=== PATIENT | female | born 1945 | race Caucasian/White ===

== ENCOUNTER 2020-11-29 12:30 | Outpatient (RCR) | payer MEDICARE, SELFPAY ==
--- NOTE | 2020-10-26 15:15 | PTOPEVAL ---
PHYSICAL THERAPY EVALUATION AND PLAN OF CARE 10-26-20 Thank you for referring Adelita Arteaga to [facility] for the diagnosis of vestibular rehab/vertigo. She is scheduled to be seen for therapy? 1-2 x/week for 5 weeks. Please review, sign, date and return this plan of care JESENIA. I agree with and certify that the following plan of care is medically necessary. Referring Physician Date Attending Provider: Dr. Pitts *PT Outpatient Evaluation Document 10/26/20 13:55 CHEPE (Rec: 10/26/20 15:15 CHEPE [id number]) Outpatient Past Medical History Past Medical History Source of Past Medical History Patient Neurological History Hx Neurological Disorders No Significant History Cardiovascular History Hx Hypercholesterolemia Yes: meds Hx Hypertension Yes: meds Respiratory History Hx Respiratory Disorders No Significant History Gastrointestinal History Hx Gastrointestinal Disorders No Significant History Genitourinary History Hx Genitourinary Disorders No Significant History Musculoskeletal History Hx Arthritis Yes: B knees, Hx Orthopedic Surgery Yes: L knee arthroscopy Endocrine History Hx Other Endocrine Disorders Yes: parathyroid removed HEENT History Hx Other HEENT Disorders Yes: glasses-bifocals, no issues with vision Reproductive History Hx Hysterectomy Yes Evaluation Information Problem Diagnosis vertigo Onset Aug 2020 Subjective Information fell due to dizziness when Query Text:As Reported By Patient/ getting up to bathroom at Family night/dark Previous Treatments Previous Treatments For This Problem no previous treatment Prior Level of Function Activity Level (Last 3 Months) Occupation retired Hand Dominance Right Activity of Daily Living Ability Independent Indoor/Home Mobility Independent Community Mobility Independent Stairs Ability Independent Functional Cognition (Planning, Shopping Independent , Taking Medications) Cooking Yes Cleaning Yes Laundry Yes Shopping Yes Driving Yes Medications Home Meds (Include: OTC, RX, Vitamins, simvastin, aspirin, brimodine, Herbals, Dose, Route,and Frequency) omepraxole, meclizine, Query Text:Home Med Entries Will No acetaminphen, Vit D; Longer Recall From Past Visits. Home Meds Must Be Re-entered With Each Visit. Home Setting Mobility Assistive Devices (Used Last 3 Cane Months) Comments Additional Prior Level of Function can do all home tasks, but Comments have to hold onto cane or wall
--- NOTE | 2020-11-29 13:11 | PTOPEVAL ---
PHYSICAL THERAPY DISCHARGE 11-29-20 Refer to the clinical summary below for her status at today's discharge. The PT goals were achieved, therefore, she will be discharged from PT at this time. Thank you for referring Adelita Arteaga to [facility] for the diagnosis of vestibular rehab/ BPPV.? Please review, sign, date and return this Discharge JESENIA. I agree with and certify that the following plan of care is medically necessary. Referring Physician Date Referring Provider: Ede Pitts MD Document 11/29/20 12:30 CHEPE (Rec: 11/29/20 13:11 CHEPE [id number]) Assessment Status Discharge Subjective Information Mrs. Arteaga reports: last time Query Text:As Reported By Patient/ had dizziness was about 1 week Family ago; is doing the maneuver without any problems; leaning forward to pick something up off floor, get off balance; have not had any falls, is using cane when going out of home and sometimes in the house when unsteady; Pain Assessment Timing of Pain Assessment Timing of Pain Assessment Assessment Self Report Self Report Pain Level 0 Pain Score Pain Score 0: Self Report Vestibular Evaluation Vestibular Testing Vestibular Testing Comments -pick up attendant item off floor, no dizziness, but unsteady - standing 360' turn to R/L- no dizziness but unsteady - walk 50' with head turn R/L and up/down without dizziness, slow pace of walking and unsteady; - HEP: review of Moffett Daroff maneuver, pt performed past few days without any s/s of dizziness; discuss continue PRN if dizziness occurs or do 2-3x/week to clear vestibular system; - discussed general fitness exercises for LE's to improve balance and walking skills; she reports unsteady with walking and fear of falling; discussed when she sees her general physician, to discuss and possibly return to therapy for LE strength and balance retraining. - Dizziness Handicap index score of 20/100 Rehab Teaching
== END 2021-01-10 12:44 | disposition home or self-care (01) ==
LOC: ANHPT 12:30
DX: H81.4 Vertigo of central origin (principal)
CPT/HCPCS: 97110; 97161

== ENCOUNTER → 2023-04-22 07:18 | Outpatient (CLI) | payer MEDICARE, SELFPAY ==
--- NOTE | ~2023-04-22 | MM_ITS ---
EXAMINATION: MM screening joe BI w fannie HISTORY: Screening TECHNIQUE: Craniocaudal and mediolateral oblique 3-D tomosynthesis images were obtained and synthetic 2-D images were generated. CAD analysis was submitted and interpreted. COMPARISON: No prior mammogram is available for comparison at this institution. BREAST PARENCHYMAL COMPOSITION: Breast composed of scattered areas of fibroglandular density FINDINGS: There are focal fat-containing lesions in the mid outer aspect of the right breast, most li tim benign fat necrosis. There is no evidence of suspicious mass, calcification, or architectural di stortion to suggest malignancy in either breast. IMPRESSION: 1. No mammographic evidence of malignancy. 2. Recommend routine screening mammography in one year. BI-RADS Category 2: Benign finding(s). Reviewed, dictated and finalized at location A.
== END ==
PROVIDERS: PCP Internal Medicine; Visit Provider Internal Medicine
DX: Z12.31 Encounter for screening mammogram for malignant neoplasm of breast (principal)
CPT/HCPCS: 77063; 77067

== ENCOUNTER 2024-11-11 15:01 | Emergency (ER) | payer MEDICARE, SELFPAY ==
--- NOTE | ~2024-11-11 | CT_ITS ---
CT facial & cervical spine wo Ordering provider: Bernie Spence MD History: . fall facial inj . Comparison: None. Technique: Thin slice axial CT of the facial bones was performed without contrast. Coronal and sagit tiana reformatted images were also obtained. . Automated exposure control and iterative reconstruction technique were employed. The dose-length product was 289.28 mGy-cm. FINDINGS: PARANASAL SINUSES: Right sphenoid sinus disease. Otherwise, Well aerated. BONES: No facial fracture including no nasal bone fracture. ORBITS AND SUPERFICIAL SOFT TISSUES: The optic globes and orbits are normal. Minimal fat stranding se en in the left cheek area and anterior to the left orbit which may indicate posttraumatic changes abhinav elvis inflammatory changes. Clinical correlation and follow-up advised. Otherwise, The superficial soft tissues are normal. VISUALIZED MASTOIDS: Well aerated. LIMITED VISUALIZED BRAIN PARENCHYMA: Normal. IMPRESSION: No facial fracture. Right sphenoid sinus disease. CT facial & cervical spine wo Ordering provider: Bernie Spence MD History: . fall facial inj . Comparison: None. Technique: CT of the cervical spine was performed without contrast. Sagittal and coronal reformatted images were also obtained and reviewed. Automated exposure control and iterative reconstruction ridge hnique were employed. The dose-length product was 289.28 mGy-cm. FINDINGS: VERTEBRAE: No subluxation or acute fracture. The occipital condyles are intact. Degenerative changes of the spine. DISC SPACES: Narrowing of the disc C2-C3, C3-C4, C4-C5 and C5-C6. Multilevel facet joint disease. Mul tilevel uncovertebral joint osteoarthritic changes. Narrowing of the left intervertebral foramen at t he level of C3-C4. Bilaterally at the level of C4-C5 and C5-C6. Narrowing of the right foramen at the level of C6-C7. PARASPINOUS SOFT TISSUES: Postoperative changes in the thyroid gland area on the right side. 7 mm Hyp erdense area seen just in the right lobe of the thyroid area. Ultrasound evaluation advised. Bilatera l carotid calcifications. IMPRESSION: No acute osseous abnormality cervical spine. Multilevel degenerative disc disease. Reviewed, dictated and finalized at location A. IMPRESSION: No facial fracture. Right sphenoid sinus disease. CT facial & cervical spine wo Ordering provider: Bernie Spence MD History: . fall facial inj . Comparison: None. Technique: CT of the cervical spine was performed without contrast. Sagittal a nd coronal reformatted images were also obtained and reviewed. Automated expos ure control and iterative reconstruction technique were employed. The dose-gabriel th product was 289.28 mGy-cm. FINDINGS: VERTEBRAE: No subluxation or acute fracture. The occipital condyles are intact. Degenerative changes of the spine. DISC SPACES: Narrowing of the disc C2-C3, C3-C4, C4-C5 and C5-C6. Multilevel fa cet joint disease. Multilevel uncovertebral joint osteoarthritic changes. Narro wing of the left intervertebral foramen at the level of C3-C4. Bilaterally at t he level of C4-C5 and C5-C6. Narrowing of the right foramen at the level of C6- C7. PARASPINOUS SOFT TISSUES: Postoperative changes in the thyroid gland area on th e right side. 7 mm Hyperdense area seen just in the right lobe of the thyroid a mariela. Ultrasound evaluation advised. Bilateral carotid calcifications.
--- NOTE | ~2024-11-11 | CT_ITS ---
CT brain wo con Ordering provider: Bernie Spence MD History: 79 years Female with . fall, facial inj . Comparison: None. Technique: CT of the head without contrast. Radiation reduction technique utilized.The dose-length pr oduct was 605.33 mGy-cm. FINDINGS: BRAIN PARENCHYMA AND CSF SPACES: Mild leukoaraiosis and diffuse cortical atrophy. Mild atheromatous d isease. Ventricular dilatation is more prominent compared to the brain atrophy. Normal pressure hydro cephalus should be considered. Old lacunar infarct in the right basal ganglia. No midline shift, mass effect or hemorrhage. The brain parenchyma and CSF spaces are otherwise normal. VISUALIZED PARANASAL SINUSES: Right sphenoid sinus disease. Otherwise, Well aerated. MASTOIDS: Well aerated. BONES: The bones appear intact. SOFT TISSUES: Visualized nasopharynx is normal. Superficial soft tissues are normal. IMPRESSION: No acute intracranial findings. Ventricular dilatation slightly prominent compared to the brain atrophy which may indicate normal pre ssure hydrocephalus. Clinical correlation advised. Reviewed, dictated and finalized at location A. IMPRESSION: No acute intracranial findings. Ventricular dilatation slightly prominent compared to the brain atrophy which m ay indicate normal pressure hydrocephalus. Clinical correlation advised.
[2024-11-11 15:03] VITALS: BP 167/101; PULSE 95; RESP 16; TEMP 37; O2SAT 100
[2024-11-11 15:20] VITALS: BP 173/83; PULSE 79; RESP 16; O2SAT 100
--- OUTSIDE RECORDS SUMMARY | 2024-11-11 15:27 | XMS_ITS | Clinical Summary ---
Author Organization [facility] Address [address] [place] [address] Care Team Providers Care Emergency Veterinary Technician Name Role Phone Colt Rasheed MD Primary Care Provider [phone] Allergies Active Allergy Reactions Criticality Noted Date Comments Tetracycline Unknown 07/09/2022 Medications aspirin EC (ECOTRIN) 81 MG tablet Take 1 tablet (81 mg total) by mouth daily. Active omeprazole (PRILOSEC) 20 MG capsule Take 1 capsule (20 mg total) by mouth daily. Active acetaminophen (TYLENOL) 325 MG tablet Take 2 tablets (650 mg total) by mouth 2 (two) times a day. Active vitamin D3, cholecalciferol, 125 mcg capsule Take 1 capsule (125 mcg total) by mouth daily. Active Multiple Vitamins-Minerals (CENTRUM SILVER) Tab Take 1 tablet by mouth daily. Active brimonidine (ALPHAGAN) 0.2 % ophthalmic solution INSTILL 1 DROP INTO BOTH EYES EVERY 12 HOURS 12/29/19 23 Active timolol (TIMOPTIC) 0.5 % ophthalmic solution INSTILL ONE DROP INTO EACH EYE TWICE DAILY. SCHEDULE APPOINTMENT FOR REFILL 12/29/19 23 Active celecoxib (CELEBREX) 200 MG capsuleIndications :Spinal stenosis of lumbar region take 1 capsule by mouth every day 90 capsule 1 05/04/20 24 Active simvastatin (ZOCOR) 10 MG tabletIndications: Mixed hyperlipidemia take 1 tablet by mouth everyday at bedtime 90 tablet 1 05/04/20 24 Active potassium chloride CR (K-TAB) 10 MEQ Tab CR tabletIndications: Primary hypertension TAKE 3 TABLETS (30 MEQ TOTAL) BY MOUTH 2 (TWO) TIMES DAILY. 540 tablet 1 05/04/20 24 Active amLODIPine (NORVASC) 10 MG tabletIndications: Primary hypertension take 1 tablet by mouth every day 90 tablet 1 05/31/20 24 Active indapamide (LOZOL) 1.25 MG tabletIndications: Primary hypertension take 1 tablet by mouth every day in the morning 90 tablet 1 05/31/20 24 Active WALKER MISC, DME,Indications:Sp inal stenosis of lumbar region with neurogenic claudication,Unste lilliana gait,Dizziness 1 Device by Does not apply route daily. 1 Device 06/22/20 Active Active Problems Problem Noted Date Diagnosed Date Spinal stenosis of lumbar region 09/03/2023 Primary hypertension 07/09/2022 Mixed hyperlipidemia 07/09/2022 Gastroesophageal reflux disease without esophagi tis 07/09/2022 Vertigo of central origin, unspecified lateralit y 10/16/2020 Vestibular vertigo 02/08/2016 Asymmetrical sensorineural hearing loss 09/12/19 16 Benign paroxysmal positional vertigo 09/12/2015 Epidemic vertigo 09/12/2015 Dizziness 09/07/2015 Hyperparathyroidism ([facility]) 07/17/2010 Encounters Date Type Department Care Team Description 11/09/2024 Patient Outreach [facility] Family & Internal Medicine [address] [address] Colt Rasheed MD Pre-visit Gap Closure 10/25/2024 Telephone [facility] Family & Internal Medicine [address] [address] Colt Rasheed MD Diarrhea 09/13/2024 Scan HEALTH INFO SRVCS Scanned, Doc [facility] 08/31/2024 Patient Outreach [facility] Family & Internal Medicine [address] [address] Colt Rasheed MD Pre-visit Gap Closure from Last 3 Months Immunizations Name Administration Dates Next Due Influenza (Generic) 05/18/2020,05/18/2019 Influenza Adult (Generic) 05/18/2018,05/19/2017, 05/16/2016,06/01/2015 Pneumococcal (Pneumovax 23) 05/18/2019 Pneumococcal (Prevnar 13) 04/15/2018 Pneumococcal (Prevnar 20) 08/13/2023 Family History Medical History Relation Comments Kidney failure Brother Relation Status Comments Brother Social History Tobacco Use Types Packs/Day Years Used Date Smoking Tobacco: Never Smokeless Tobacco: Never Tobacco Cessation:Counseling Given: Not Answered Alcohol Use Standard Drinks/Week Comments Yes 0 (1 standard drink = 0.6 oz pure alcohol) rarely; couple glasses of wine yearly PHQ-2 Answer Date Recorded Patient Health Questionnaire-2 Score 0 08/13/2023 Comments No Sex and Gender Information Value Date Recorded Sex Assigned at Not on file Legal Sex Female 9:50 AM CDT Gender Identity Not on file Sexual Orientation Not on file Last Filed Vital Signs Vital Sign Reading Time Taken Comments Blood Pressure 120/70 02/16/2024 11:49 AM CDT Pulse 65 02/16/2024 11:49 AM CDT Temperature 36.7 C (98.1 F) 02/16/2024 11:49 AM CDT Respiratory Rate 16 02/16/2024 11:49 AM CDT Oxygen Saturation 97% 02/16/2024 11:49 AM CDT Inhaled Oxygen Concentration - - Weight 71.2 kg (157 lb) 02/16/2024 11:49 AM CDT Height 162.6 cm (5' 4 ) 02/16/2024 11:49 AM CDT Body Mass Index 26.95 02/16/2024 11:49 AM CDT Plan of Treatment Upcoming Encounters Date Type Department Care Team (Late st Contact Info) Description 11/17/2024 9:40 AM CDT Office Visit [facility] Family & Internal Medicine - [address] [address] Colt Rasheed MD [address] [place] [id number] Health Maintenance Due Date Last Done Comments Hepatitis C 1963 DTaP, Tdap and Td Vaccines (1 - Tdap) 02/26/1964 Zoster Vaccines (1 of 2) 1995 Annual Medicare Wellness Visit 2010 RSV Immunization or 60+ Years (1 - 1-dose 75+ series) 02/26/2020 COVID-19 Vaccine ( - season) 2024 05/16/2022, 12/25/2021, 05/16/2021, Additional history exists PHQ-2 (Physician Petty) 08/04/2024 08/13/2023 Dexa Scan (General) Completed 04/26/2020 Pneumococcal Vaccine: 65+ Years Completed 08/13/2023, 05/18/2019, 04/15/2018 Meningococcal B Vaccine Aged Out No l onger eligible based on patient's age to complete this topic Meningococcal Vaccine Aged Out No charity jeronimo eligible based on patient's age to complete this topic RSV Immunizations Under 20 Months Aged Out No longer eligible based on patient's age to complete this topic Procedures Procedure Name Priority Date/Time Associated Diagnosis Comments BONE DENSITY GENERIC (SCAN ORDER) 04/26/2020 from Last 3 Months or Most Recently Relevant to Health Maintenance Results * BONE DENSITY GENERIC (04/26/2020) Anatomical Region Laterality Modality Other 04/26/2020 us [facility] Scanned SCANNING Final Resu lt from Last 3 Months or Most Recently Relevant to Health Maintenance Insurance MEDICARE [facility] Care Teams Emergency Veterinary Technician Relationship Specialty Start Date End Date Colt Rasheed MD [address] [place] [id number] PCP - General INTERNAL MEDICINE 07/09/22
--- OUTSIDE RECORDS SUMMARY | 2024-11-11 15:27 | XMS_ITS | Clinical Summary ---
Author Organization [facility] Address [facility] [place] [address] Care Team Providers Care Regional Program Manager Name Role Phone Sam Renteria MD Primary Care Provider [phone] Allergies Active Allergy Reactions Criticality Noted Date Comments Tetracycline Medications amLODIPine (NORVASC) 10 mg tablet Take 10 mg by mouth daily 10/02/2020 Active celecoxib (CeleBREX) 200 mg capsule Take by mouth daily 08/15/2020 Active indapamide (LOZOL) 1.25 mg tablet Take 1.25 mg by mouth daily 07/28/2020 Active potassium chloride ER 10 mEq CR tablet Take 30 mEq by mouth 2 (two) times a day 07/28/2020 Active simvastatin (ZOCOR) 10 mg tablet TAKE ONE TAB BY MOUTH EVERY NIGHT 08/26/2020 Active Active Problems Problem Noted Date Diagnosed Date Vertigo of central origin, unspecified lateralit y 10/16/2020 Vestibular vertigo 02/08/2016 Epidemic vertigo 09/12/2015 Benign paroxysmal positional vertigo 09/12/2015 Asymmetrical sensorineural hearing loss 09/12/19 16 Dizziness 09/07/2015 Hyperparathyroidism 07/17/2010 Surgical History Surgery Date Site/Laterality Comments IR FINE NEEDLE ASPIRATION W IMAGE GUIDANCE 08/21/2012 N/A Social History Tobacco Use Types Packs/Day Years Used Date Smoking Tobacco: Never Assessed Comments Unknown Sex and Gender Information Value Date Recorded Sex Assigned at Not on file Legal Sex Female 3:01 AM SEXUAL ASSAULT COUNSELOR Gender Identity Not on file Sexual Orientation Not on file Obstetrics History Last Filed Vital Signs Vital Sign Reading Time Taken Comments Blood Pressure 148/90 09/12/2015 11:24 AM SEXUAL ASSAULT COUNSELOR Pulse 84 11/16/2013 10:04 AM CDT Temperature - - Respiratory Rate - - Oxygen Saturation 100% 11/12/2012 8:00 AM CDT Inhaled Oxygen Concentration - - Weight 79.4 kg (175 lb) 09/12/2015 11:24 AM SEXUAL ASSAULT COUNSELOR Height 167.6 cm (5' 6 ) 09/12/2015 11:24 AM SEXUAL ASSAULT COUNSELOR Body Mass Index 28.25 09/12/2015 11:24 AM SEXUAL ASSAULT COUNSELOR Plan of Treatment Not on file Insurance Member Subscriber Plan / Payer ( fective 2020-Present) Name:Adelita Arteaga Relation to Subscriber:Self Name:Adelita Arteaga Payer ID:[id number] Group ID:[id number] Type:[employer] Address: [address] [address] MEDICARE MEDICARE COMMERCIAL GENERIC Care Teams Regional Program Manager Relationship Specialty Start Date End Date Sam Renteria MD [address] [facility] [address] [place] [address] PCP - General Cardiovascular Disease 08/14/20
--- OUTSIDE RECORDS SUMMARY | 2024-11-11 15:27 | XMS_ITS | Referral Summary ---
Author Organization [facility] Address [address] [place] [address] Care Team Providers Care Engineering Secretary Name Role Phone Sam Renteria MD Primary Care Provider [phone] Allergies Active Allergy Reactions Criticality Noted Date [...] loss 09/12/19 16 Dizziness 09/07/2015 Hyperparathyroidism 07/17/2010 Social History Tobacco Use Types Packs/Day Years Used Date Smoking Tobacco: Never Assessed Comments Unknown Sex and Gender Information Value Date Recorded Sex Assigned at Not on file Legal Sex Female 3:01 AM SOD CUTTER Gender Identity Not on file Sexual Orientation Not on file Last Filed Vital Signs Vital Sign Reading Time Taken Comments Blood Pressure 148/90 09/12/2015 11:24 AM SOD CUTTER Pulse 84 11/16/2013 10:04 AM CDT Temperature - - Respiratory Rate - - Oxygen Saturation 100% 11/12/2012 8:00 AM CDT Inhaled Oxygen Concentration - - Weight 79.4 kg (175 lb) 09/12/2015 11:24 AM SOD CUTTER Height 167.6 cm (5' 6 ) 09/12/2015 11:24 AM SOD CUTTER Body Mass Index 28.25 09/12/2015 11:24 AM SOD CUTTER Plan of Treatment Not on file Insurance COMMERCIAL GENERIC MEDICARE MEDICARE COMMERCIAL GENERIC * Guarantor: Adelita Arteaga Account Type Relation to Patient Date of Phone Billing Address Personal/Family Self 1945 [address] [place] [address] Care Teams Engineering Secretary Relationship Specialty Start Date End Date Sam Renteria MD [address] [place] [address] PCP - General Cardiovascular Disease 08/14/20
--- OUTSIDE RECORDS SUMMARY | 2024-11-11 15:27 | XMS_ITS ---
Author Name Kristopher Sanabria Address [address] [address] Phone [phone] Organization [facility] Address [address] [place] [address] Phone [phone] Care Team Providers Care Qa Test Analyst Name Role Phone Kristopher Sanabria Unavailable [phone] Functional Status No Results Mental Status No Results Allergies and Intolerances No Known Allergies Problems Active Concerns * Vestibular neuronitis, bilateral* Code: * Start Date: FriMar 04 00:00:00 EDT 2015 * End Date: * Text: * Dizziness and giddiness* Code: * Start Date: FriMar 04 00:00:00 EDT 2015 * End Date: * Text: Reason for Referral Past Medical History
--- OUTSIDE RECORDS SUMMARY | 2024-11-11 15:27 | XMS_ITS | Continuity of Care Document ---
Author Organization [facility] Address [address] [place] [address] Phone Care Team Providers Care Brand Engineer Name Role Phone [facility] Unavailable [...] Diagnoses Date Provider Providers Copied on Encounter [facility], [address], [place], [place], [address], [place] tel:[phone] SEC [facility] Yimi No Information 0 [facility] n. [address] [facility], [address], [place], [place], [address] , [place]. tel:[phone] Referring Provider: Christiano Orr MD C, [address] [facility] [address], [place], [address]. tel:[phone] g Provider: Catarina Gusman, [address] [facility], [place], [address]. tel:[phone] [facility], [address], [place], [place], [address], [place] tel:[phone] SEC [facility] No Information Oct- 4-200 9 [facility]. [address] [facility], [address], [place], [place], [address] , [place]. tel:[phone] Referring Provider: Christiano Bernal, [address], [place], [address]. tel:[phone] g Provider: Catarina Gusman, [address] [facility], [place], [address]. tel:[phone] [facility], [address], [place], [place], [address], [place] tel:[phone] [facility] No Information Apr- 5-200 9 [facility]. [address] [facility], [address], [place], [address] , [place]. tel:[phone] Referring Provider: Christiano Bernal, [address], [place], [address]. tel:[phone] g Provider: Cat Cruz, [address] [place], [address]. tel:[phone] [facility], [address], [place], [place], [address], [place] tel:[phone] [facility] No Information Sep- 5-200 8 [facility]. [address] [facility], [address], [place], [address] , [place]. tel:[phone] Referring Provider: Christiano Bernal, [address], [place], [address]. tel:[phone] m Provider: Tommy Bruce, [address] [facility], [place], [address]. tel:[phone] [facility], [address], [place], [place], [address], [place] tel:[phone] [facility] No Information Jan- 5-200 7 [facility] [employer] n. [address] [facility], [address], [place], [place], [address] , [place]. tel:[phone] Referring Provider: Christiano Orr MD C, [address] [facility] [address], [place], [address]. tel:[phone] f Provider: Cat Cruz, [address] [place], [address]. tel:[phone] Family History Family Member Type Diagnosis Age At Onset No Information Payers Payer name Insurance type Covered democrat ID Puja christianson(s) [employer] Plan CI [id number] Social History Type Description Quantity Date Captured [...]
--- NOTE | 2024-11-11 15:44 | ED_ITS ---
HPI - Fall General Chief Complaint: Fall Stated Complaint: Fall-Injury to left side of face, No LOC Time Seen by Provider: 11/11/24 15:19 Source: patient Mode of arrival: ambulatory Limitations: no limitations History of Present Illness HPI Narrative: Patient presents after she tripped on a curb and fell while picking up her taxes. She struck her face, particularly the left side. No loss of consciousness. No blurred/double vision. No broken/loose dentition. On 81mg ASA but no other anticoagulation. No head or neck pain. Related Data Allergies Allergy/AdvReac Type Severity Reaction Status Date / Time Tetracyclines Allergy Intermediate Hives Verified 11/11/24 15:03 Exam Narrative: GENERAL: Well-appearing, well-nourished, and in no acute distress. HEAD: Left periorbital ecchymosis and swelling, particularly around the lateral (including superior and inferior) aspect. Abrasion to left check. EYES: Non injected, non icteric. PERRL. EOMI without entrapment. No nystagmus. No APD. ENT: Nares clear, no rhinorrhea or epistaxis. No septal hematoma. No br oken/loose dentition. Left upper lip swelling. Subcentimeter laceration/abrasion along inner mucosa of upper left lip. NECK: Supple. Not held in fixed flexion/extension. CHEST: Speaking in full sentences. No respiratory distress. HEART: Regular rate and rhythm. . ABDOMEN: Soft, nondistended. EXTREMITIES: Normal range of motion. No lower extremity edema. SKIN: Warm, dry, no rash. NEURO: No focal deficits. Alert and oriented x3. sensation intact throughout face. Facial movements symmetric bilaterally - muscles engage. PSYCH: Normal mood and affect. Course Vital Signs Vital signs: Vital Signs Temperature 98.6 F 11/11/24 15:03 Pulse Rate 95 11/11/24 15:03 Respiratory Rate 16 11/11/24 15:03 Blood Pressure 167/101 H 11/11/24 15:03 Pulse Oximetry 100 11/11/24 15:03 Oxygen Delivery Room Air 11/11/24 15:03 Temperature 98.6 F 11/11/24 15:03 Pulse Rate 95 11/11/24 16:21 Respiratory Rate 20 11/11/24 16:21 Blood Pressure 149/102 H 11/11/24 16:21 Pulse Oximetry 95 11/11/24 16:21 Oxygen Delivery Room Air 11/11/24 15:03 MDM - Fall MDM Narrative Medical decision making narrative: Patient presents after a fall injury in which she tripped and struck her face. In the emergency department she is afebrile vital signs notable for hypertension. Patient given analgesia and ice pack. No acute process on imaging but incidental finding noted in DC instructions for outpatient follow up. Discussed with patient that swelling likely to get worse before it gets better and if it swells it may cause eyelid to swell and impair her vision so to be even more cautious. Advised ice and prescribed OTC analgesics. Discharged in stable condition. Differential Diagnosis Differential diagnosis: Likely compression fracture and other (intracranial bleeding, vertebral fracture/subluxation; facial bone fractures) Imaging Data Radiologist's impression: No acute intracranial findings. Ventricular dilatation slightly prominent compared to the brain atrophy which may indicate normal pressure hydrocephalus. Clinical correlation advised. IMPRESSION: No acute osseous abnormality cervical spine. Multilevel degenerative disc disease. Discharge Plan Discharge Clinical Impression: DDD (degenerative disc disease), cervical, Fall (on)(from) sidewalk curb, initial encounter, Traumatic periorbital ecchymosis of left eye, Abrasion of face, Abrasion of intraoral surface of lip Patient Disposition: Home Condition: Stable Instructions: Fall Prevention for Older Adults (ED), Abrasion (ED), Degenerative Disc Disease (ED), Eyelid Swelling (ED) Additional Instructions: No broken bones in skull/neck/face. No bleeding in the brain. Your CT scan did show Ventricular dilatation slightly prominent compared to the brain atrophy which may indicate normal pressure hydrocephalus. Clinical correlation advised. Your primary care physician can follow-up on this. As we discussed, the swelling room URI may get worse before it gets better. You can continue to apply ice pack 15-20 minutes at a time 4 times a day. Do not apply ice directly to the skin. Acetaminophen/Tylenol (maximum 4000 mg per day) is safe to take with NSAIDs (ibuprofen/Motrin) for pain relief. Return to the emergency department with any new or worsening symptoms. Patient Language: Northern Irish Prescriptions: New ibuprofen 600 mg tablet 600 mg PO TID PRN (Reason: pain) Qty: 30 0RF acetaminophen 500 mg capsule 1,000 mg PO Q6H PRN (Reason: pain) Qty: 30 0RF Follow-up/Referrals: Wili,Colt Admas MD [Primary Care Provider] - Time of Disposition: 17:08
[2024-11-11 16:21] VITALS: BP 149/102; PULSE 95; RESP 20; O2SAT 95
--- OUTSIDE RECORDS SUMMARY | 2024-11-11 16:21 | XMS_ITS | Clinical Summary ---
Author Organization [facility] Address [address] [place] [address] Care Team Providers Care Property Claim Rep Name Role Phone Colt Rasheed MD Primary Care Provider [phone] Allergies Active Allergy Reactions Criticality Noted Date [...] 09/12/2015 Epidemic vertigo 09/12/2015 Dizziness 09/07/2015 Hyperparathyroidism ([facility]) 07/17/2010 Encounters Date Type Department Care Team Description 11/09/2024 Patient Outreach [facility] [address] [address] Colt Rasheed MD Pre-visit Gap Closure 10/25/2024 Telephone [facility] [address] [address] Colt Rasheed MD Diarrhea 09/13/2024 Scan HEALTH INFO SRVCS Scanned, [facility] 08/31/2024 Patient Outreach [facility] [address] [address] Colt Rasheed MD Pre-visit Gap Closure from [...] Description 11/17/2024 9:40 AM CDT Office Visit [facility] Family & Internal Medicine - [address] [address] Colt Rasheed MD [address] [place] [id number] Health Maintenance Due Date Last Done Comments Hepatitis C 1963 DTaP, Tdap and Td Vaccines (1 - Tdap) 02/26/1964 Zoster Vaccines (1 of 2) 1995 Annual Medicare Wellness Visit 2010 RSV Immunization or 60+ Years (1 - 1-dose 75+ series) 02/26/2020 COVID-19 Vaccine ( - season) 2024 05/16/2022, 12/25/2021, 05/16/2021, Additional history exists PHQ-2 (Physician [place]) 08/04/2024 08/13/2023 Dexa Scan (General) Completed 04/26/2020 [...] Recently Relevant to Health Maintenance Insurance MEDICARE [facility] Care Teams Property Claim Rep Relationship Specialty Start Date End Date Colt Rasheed MD [address] [place] [id number] PCP - General INTERNAL MEDICINE 07/09/22
--- OUTSIDE RECORDS SUMMARY | 2024-11-11 16:21 | XMS_ITS ---
Author Name Kristopher Sanabria Address [address] [address] Phone [phone] Organization [facility] Address [address] [place] [address] Phone [phone] Care Team Providers Care Daily Sales Audit Clerk Name Role Phone Kristopher Sanabria Unavailable Functional Status No Results Mental Status No [...]
--- OUTSIDE RECORDS SUMMARY | 2024-11-11 16:21 | XMS_ITS | Referral Summary ---
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 Gender Identity Not on file Sexual Orientation Not on file Last Filed Vital Signs Vital Sign Reading Time Taken Comments Blood Pressure 148/90 09/12/2015 11:24 AM HOSE SPRAYER Pulse 84 11/16/2013 10:04 AM CDT Temperature - - Respiratory Rate - - Oxygen Saturation 100% 11/12/2012 8:00 AM CDT Inhaled Oxygen Concentration - - Weight 79.4 kg (175 lb) 09/12/2015 11:24 AM HOSE SPRAYER Height 167.6 cm (5' 6 ) 09/12/2015 11:24 AM HOSE SPRAYER Body Mass Index 28.25 09/12/2015 11:24 AM HOSE SPRAYER Plan of Treatment Not on file Insurance COMMERCIAL GENERIC [employer] Address: [place] [address] MEDICARE MEDICARE COMMERCIAL GENERIC Care Teams Finish Sander Relationship Specialty Start Date End Date Sam Renteria MD [address] [place] [address] PCP - General Cardiovascular Disease 08/14/20
--- OUTSIDE RECORDS SUMMARY | 2024-11-11 16:21 | XMS_ITS ---
Author Name Kristopher Sanabria Address [address] [address] Phone [phone] [facility] Address [address] [place] [address] Phone [phone] Care Team Providers Care Tight Cooper Name Role Phone Kristopher Sanabria Unavailable Functional Status Mental Status Allergies and Intolerances Problems Reason for Referral Past Medical History
--- OUTSIDE RECORDS SUMMARY | 2024-11-11 16:21 | XMS_ITS | Clinical Summary ---
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 Gender Identity Not on file Sexual Orientation Not on file Obstetrics History Last Filed Vital Signs Vital Sign Reading Time Taken Comments Blood Pressure 148/90 09/12/2015 11:24 AM GEOPHYSICAL MANAGER Pulse 84 11/16/2013 10:04 AM CDT Temperature - - Respiratory Rate - - Oxygen Saturation 100% 11/12/2012 8:00 AM CDT Inhaled Oxygen Concentration - - Weight 79.4 kg (175 lb) 09/12/2015 11:24 AM GEOPHYSICAL MANAGER Height 167.6 cm (5' 6 ) 09/12/2015 11:24 AM GEOPHYSICAL MANAGER Body Mass Index 28.25 09/12/2015 11:24 AM GEOPHYSICAL MANAGER Plan of Treatment Not on file Insurance Member Subscriber Plan / Payer ( fective 2020-Present) Name:Adelita Arteaga Relation to Subscriber:Self Name:Adelita Arteaga Payer ID:[id number] Group ID:[id number] Type:MedHOK Address: [address] [address] MEDICARE MEDICARE COMMERCIAL GENERIC Care Teams Supplier Relationship Director Relationship Specialty Start Date End Date Sam Renteria MD [address] [facility] [address] [place] [address] PCP - General Cardiovascular Disease 08/14/20
--- OUTSIDE RECORDS SUMMARY | 2024-11-11 16:21 | XMS_ITS | Continuity of Care Document ---
Author Organization [facility] Address [address] [place] [address] Phone Care Team Providers Care Deputy Editor In Chief Name Role Phone [facility] Unavailable [...] Diagnoses Date Provider Providers Copied on Encounter [facility], [address], [place], [place], [address], [place] tel:[phone] SEC [facility] Y[place] No Information 0 [facility]. [address] [facility], [address], [place], [place], [address] , [place]. tel:[phone] Referring Provider: Christiano Orr MD C, [address] [facility] [address], [place], [address]. tel:[phone] g Provider: Catarina Gusman, [address] [facility], [place], [address]. tel:[phone] [facility], [address], [place], [place], [address], [place] tel:[phone] SEC [facility] No Information Oct- 4-200 9 [facility]. [address] [facility], [address], [place], [place], [address] , [place]. tel:[phone] Referring Provider: Christiano Bernal, [address], [place], [address]. tel:[phone] g Provider: Catarina Gusman, [address] [facility], [place], [address]. tel:[phone] [facility], [address], [place], [place], [address], [place] tel:[phone] [facility] No Information Apr- 5-200 9 [facility] [facility], [address], [place], [address] , [place]. tel:[phone] Referring Provider: Christiano Bernal, [address], [place], [address]. tel:[phone] g Provider: Cat Cruz, [address] [place], [address]. tel:[phone] [facility], [address], [place], [place], [address], [place] tel:[phone] [facility] No Information Sep- 5-200 8 [facility] [address] [facility], [address], [place], [address] , [place]. tel:[phone] Referring Provider: Christiano Bernal, [address], [place], [address]. tel:[phone] m Provider: Tommy Bruce, [address] [facility], [place], [address]. tel:[phone] [facility], [address], [place], [place], [address], [place] tel:[phone] [facility] No Information Jan- 5-200 7 [facility] [employer] n. [address] [facility], [address], [place], [place], [address] , [place]. tel:[phone] Referring Provider: Christiano Orr MD C, [address] [facility] [address], [place], [address]. tel:[phone] y Provider: Cat Cruz, [address] [place], [address]. tel:[phone] Family History Family Member Type Diagnosis Age At Onset No Information Payers Payer name Insurance type Covered libertarian ID Puja christianson(s) [employer] Plan CI [id number] Social History Type Description Quantity Date Captured [...]
[2024-11-11] MEDS: HYDROcodone/acetaminophen (*CRX) 5-325 MG TABLET 1 TAB PO (16:22)
== END 2024-11-11 17:29 | disposition home or self-care (01) ==
PROVIDERS: Emergency Provider Student in an Organized Health Care Education/Training Program; PCP Internal Medicine
DX: S00.12XA Contusion of left eyelid and periocular area, initial encounter (principal); S00.512A Abrasion of oral cavity, initial encounter; S00.81XA Abrasion of other part of head, initial encounter; M50.31 Other cervical disc degeneration, high cervical region; Z79.82 Long term (current) use of aspirin; W10.1XXA Fall (on)(from) sidewalk curb, initial encounter
CPT/HCPCS: 70450; 70486; 72125; 99284; A9270

== ENCOUNTER 2024-11-25 09:24 | Outpatient (CLI) | payer MEDICARE, SELFPAY ==
--- NOTE | ~2024-11-25 | MR_ITS ---
MRI of the brain Clinical History: Unsteady gait Technique: Axial and sagittal T1-weighted images were acquired. These were followed by axial T2-weigh joe, diffusion weighted, gradient, and FLAIR images. Findings: There is no acute infarct, acute intracranial hemorrhage or mass lesion. There is moderate to severe chronic microvascular ischemic change at the periventricular white matter bilaterally. Ventricles and subarachnoid spaces are dilated. Orbits are unremarkable. Paranasal sinuses and mastoi d air cells are clear. Major intracranial flow voids appear intact. Sagittal midline structures are intact. IMPRESSION: No acute abnormality seen. Moderate to severe chronic microvascular ischemic change and moderate to severe generalized atrophy. Reviewed, dictated and finalized at location .
== END 2024-11-25 09:25 | disposition home or self-care (01) ==
PROVIDERS: PCP Internal Medicine; Visit Provider Internal Medicine
DX: G31.9 Degenerative disease of nervous system, unspecified (principal); I67.82 Cerebral ischemia; I25.85 Chronic coronary microvascular dysfunction; G91.2 (Idiopathic) normal pressure hydrocephalus; R26.81 Unsteadiness on feet
CPT/HCPCS: 70551

== ENCOUNTER 2025-06-06 17:27 | Inpatient (IN) | payer MEDICARE, SELFPAY ==
--- OUTSIDE RECORDS SUMMARY | 2010-01-29 18:00 | XMS_ITS | Continuity of Care Document ---
Author Organization [facility] Address [address] [place] [address] Phone Care Team Providers Care Life Sciences Instructor Name Role Phone [facility] Unavailable Unavail able Catarina Gusman Unavailable Unavailable Procedures Procedure Date Vision Svcs Frames Purchases Progressive Lens, Hi Index Lens-Index 1.54-1.79 Glass Tint Photochromatic, Hi Index 0 Progressive Lens, Polycarb Tint Photochromatic, Polycarb May--200 9 Tax - Medical Progressive Lens, Polycarb Anti-reflective Coating Tax - Medical Progressive Lens, Polycarb Tint Photochromatic, Polycarb 8 Tax - Medical Frames Deluxe Progressive Lens, Polycarb Anti-reflective Coating Tax - Medical Advance Directives Directive Yes / No Effective Date File Name No Information Encounters Encounter Description Practice Location Reason(s) For Visit Diagnoses Date Provider Providers Copied on Encounter [facility], [address], [place], [place], [address], [place] tel:[phone] [facility] Yimi No Information 0 [facility] [address] [facility], [address], [place], [place], [address] , [place]. tel:[phone] Referring Provider: Christiano Orr MD C, [address], [place], [address]. tel:[phone] g Provider: Catarina Gusman, [address] [facility], [place], [address]. tel:[phone] [facility], [address], [place], [place], [address], [place] tel:[phone] [facility] No Information Oct- 4-200 9 [facility] [address] [facility], [address], [place], [place], [address] , [place]. tel:[phone] Referring Provider: Christiano Bernal, [address], [place], [address]. tel:[phone] g Provider: Catarina Gusman, [address] [facility], [place], [address]. tel:[phone] [facility], [address], [place], [place], [address], [place] tel:[phone] [facility] No Information Apr- 5-200 9 [facility] [address] [facility], [address], [place], [address] , [place]. tel:[phone] Referring Provider: Christiano Bernal, [address], [place], [address]. tel:[phone] g Provider: Cat Cruz, [address] [place], [address]. tel:[phone] [facility], [address], [place], [place], [address], [place] tel:[phone] [facility] No Information Sep- 5-200 8 [facility] [address] [facility], [address], [place], [address] , [place]. tel:[phone] Referring Provider: Christiano Bernal, [address], [place], [address]. tel:[phone] e Provider: Tommy Bruce, [address] [facility], [place], [address]. tel:[phone] [facility], [address], [place], [place], [address], [place] tel:[phone] [facility] No Information Jan- 5-200 7 [facility]. [address] [facility], [address], [place], [place], [address] , [place]. tel:[phone] Referring Provider: Christiano Orr MD C, [address] [facility] [address], [place], [address]. tel:[phone] o Provider: Cat Cruz, [address] [place], [address]. tel:[phone] Family History Family Member Type Diagnosis Age At Onset No Information Payers Payer name Insurance type Covered green party ID Puja christianson(s) [employer] Plan CI [id number] Social History Type Description Quantity Date Captured Comments Sex Female Smoking Status No Information Chief Complaint And Reason For Visit No Information Reason For Referral Reason For Referral No Information History Of Present Illness Encounter Date Complaint History Of Prese nt Illness No Information Functional Status Date Functional Assessmen t No Information Instructions Date Instruction Additional Infor mation No Information Assessments Type Assessment Date No Information Patient Care Teams Name Effective Dates (start - stop) Status Members No Information
[2025-06-06] VITALS (28 sets, daily range): BP systolic 135–174; BP diastolic 67–101; PULSE 64–109; RESP 12–22; TEMP 36.6; O2SAT 94–100
--- NOTE | ~2025-06-06 | XR_ITS ---
XR chest 1V portable 06/06/2025 20:06 Indication: Weakness. Procedure: AP portable chest Comparison: No prior studies for comparison. Findings: Heart size normal. Elevation of the right diaphragm. No focal air space disease, pulmonary edema, pleural effusion or suspected pneumothorax. Impression: 1: No acute cardiopulmonary disease. Reviewed, dictated and finalized at location O. K HACKER Impression: 1: No acute cardiopulmonary disease.
--- NOTE | ~2025-06-06 | XR_ITS ---
EXAMINATION: XR knee LT 3V, 06/08/2025 15:20 FUEL CELL DESIGNER HISTORY: Left knee, s/p fall COMPARISON: No comparisons available. Findings: No acute fracture or malalignment. Severe tricompartmental degenerative changes with small effusion Soft tissues unremarkable. Impression: No acute fracture or malalignment. Reviewed, dictated and finalized at location P. CELL DESIGNER Impression: No acute fracture or malalignment.
--- NOTE | ~2025-06-06 | CT_ITS ---
EXAMINATION: CT brain wo con DATE: 06/06/2025 19:46 INDICATION: Altered mental status TECHNIQUE: Computed tomography (CT) of the head was performed without intravenous contrast. The dose-length product was 605.33 mGy-cm. Automated exposure control and iterative reconstruction technique were employed. COMPARISON: CT dated 11/11/2024 FINDINGS: Generalized atrophy. 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 There are scattered severe periventricular and subcortical white matter changes, most likely related to small vessel ischemic disease (microangiopathy). There is compensatory dilation of the ventricles due to atrophy. There is intracranial atherosclerosis with ectasia of the carotid arteries in the cavernous sinus. There is mild mucosal thickening of the left maxillary, ethmoid and right sphenoid sinus. Mastoids are pneumatized. No depressed skull fractures. IMPRESSION: 1. No acute intracranial abnormality. 2: Moderate sinus disease, possibly chronic. Reviewed, dictated and finalized at location O. ROPE SALES REPRESENTATIVE
--- NOTE | ~2025-06-06 | MR_ITS ---
EXAMINATION: MR brain/brain stem wo/w con DATE: 06/08/2025 13:53 INDICATION: Acute onset confusion TECHNIQUE: Magnetic resonance imaging (MRI) of the brain and brainstem was performed without and with 15 mL Multihance intravenous contrast. Sequences included sagittal and axial T1-weighted SE, axial diffusion-weighted FS SE, axial 3D SWAN, axial T2-weighted FLAIR, and axial T2-weighted FSE. Postcontrast axial and coronal T1-weighted SE was obtained. Apparent diffusion coefficient (ADC) maps were created. COMPARISON: Head CT and CT angiogram dated 06/06/2025 and brain MR dated 11/25/2024 FINDINGS: There are no areas of restricted diffusion to suggest acute infarction. No intracranial hemorrhage or abnormal intracranial mass lesion. Again seen are multiple small old lacunar infarcts scattered throughout the periventricular white matter of the bilateral cerebral hemispheres. There are scattered areas of nonspecific increased T2-weighted signal intensity in the cerebral white matter, predominantly involving the deep and periventricular white matter. There are no intraparenchymal signal abnormalities seen on the other pulse sequences. Unchanged symmetric enlargement of the third and left and right lateral ventricles. There are no abnormal extra-axial fluid collections. Flow voids are seen in the cerebral arteries on the T2-weighted sequences consistent with their expected patency. Mucosal thickening in the bilateral ethmoid, right axillary and right sphenoid sinuses. Changes of bilateral intraocular lens replacement. Visualized orbits and soft tissues are otherwise unremarkable. There are no areas of abnormal enhancement on the post contrast images. IMPRESSION: 1. No acute intracranial process or abnormally enhancing brain lesions.. 2. Stable appearance of prominent chronic periventricular predominant white matter T2 hyperintensity consistent with chronic small vessel ischemic disease and multiple more focal small old lacunar infarcts in the bilateral cerebral periventricular white matter. 3. Unchanged symmetric enlargement of the third and left and right lateral ventricles which could be secondary to age-related central predominant diffuse cerebral volume loss or secondary to normal pressure hydrocephalus (NPH: clinical triad ataxia/gait disturbance, dementia, urinary incontinence). Reviewed, dictated and finalized at location A. ATOR REPAIRER IMPRESSION: 1. No acute intracranial process or abnormally enhancing brain lesions.. 2. Stable appearance of prominent chronic periventricular predominant white mat ter T2 hyperintensity consistent with chronic small vessel ischemic disease and multiple more focal small old lacunar infarcts in the bilateral cerebral periv entricular white matter. 3. Unchanged symmetric enlargement of the third and left and right lateral vent ricles which could be secondary to age-related central predominant diffuse cere bral volume loss or secondary to normal pressure hydrocephalus (NPH: clinical t mayra ataxia/gait disturbance, dementia, urinary incontinence).
--- NOTE | ~2025-06-06 | CT_ITS ---
REFERENCE: [None available.] TECHNIQUE: Axial mm images of the head and neck were obtained without and with infusion of 100 cc of Isovue-370 of intravenous contrast. Postcontrast 1.25 mm axial images were then obtained. On an independent workstation, 0.625 mm axial images were utilized to render MIP and MPR images of the intracranial circulation. CTA NECK: The aortic arch demonstrates normal caliber and patency. Normal branching pattern is noted of the supraaortic vessels. The origins of the supraaortic vessels are widely patent.. The common carotid and cervical segments of the ICA and ECA demonstrate normal caliber and patency. Stenotic or hypoplastic right vertebral artery with dominant left vertebral arteries noted. CTA HEAD: The intracranial ICA, MARIN, and MCA demonstrate normal caliber and patency. No hemodynamically significant stenosis or aneurysm is identified. Stenotic but patent right vertebral artery with dominant left vertebral artery. The basilar, and bilateral posterior cerebral arteries demonstrate normal caliber and patency. The superior cerebellar arteries are also widely patent. NONVASCULAR FINDINGS: The soft tissue of the neck is unremarkable. No mass or pathologic enhancement is noted. There is no pathologically enlarged lymphadenopathy. The airway is patent. No acute intracranial hemorrhage, mass, or extraaxial fluid collections are noted. Ventricular size is normal. The skull is intact. There are opacification of the right sphenoid sinus and mucosal thickening of the ethmoid's.There is no pathologic enhancement. 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 Otherwise no hemodynamically significant stenosis is noted of the cervical and intracranial arterial vasculature. Reviewed, dictated and finalized at location S. [employer] IMPRESSION: Stenotic or hypoplastic right vertebral artery with dominant left vertebral art jesus. Otherwise no hemodynamically significant stenosis is noted of the cervical and intracranial arterial vasculature.
--- NOTE | 2025-06-06 17:42 | ED.AMS ---
HPI - Altered Mental Status General Chief Complaint: Altered Mental Status Stated Complaint: confused/weakness Time Seen by Provider: 06/06/25 17:37 Source: EMS Mode of arrival: EMS Limitations: altered mental status History of Present Illness HPI narrative: This is a an 80-year-old female history of hypertension who presents to the ED via EMS for altered mental status. Per EMS, the patient apparently was found by neighbor stuck on her toilet unable to get up. There was concerns for altered mental status the patient reported that she was just feeling weak. Patient does not recall exactly what happened today. Denies fevers, chills, chest pain, shortness of breath. Does report a cough for the past couple days. Denies abdominal pain, nausea and vomiting. Related Data Allergies Allergy/AdvReac Type Severity Reaction Status Date / Time Tetracyclines Allergy Intermediate Hives Verified 11/11/24 15:03 Review of Systems Review of Systems: ROS unobtainable: Yes unobtainable due to mental status Exam Narrative: APPEARANCE: No acute distress, nontoxic, resting in bed. Malodorous EYES: EOMI HEENT: Normocephalic, atraumatic, OMM RESPIRATORY: No respiratory distress Clear to auscultation bilaterally with no rhonchi wheezing or rales. CARDIOVASCULAR: Tachycardic with regular rhythm without murmurs rubs or gallops. ABDOMINAL: Soft, nontender, nondistended, no rebound or guarding MUSCULOSKELETAl: Moves all extremities. No clubbing, cyanosis or edema. NEURO: AO x2. Following commands, speech normal, no focal deficits. SKIN:: Erythema to the posterior upper legs PSYCHIATRIC: Normal affect/mood, Course Vital Signs Vital signs: Vital Signs Temperature 97.9 F 06/06/25 17:29 Pulse Rate 109 H 06/06/25 17:29 Respiratory Rate 19 06/06/25 17:29 Blood Pressure 138/79 06/06/25 17:29 Pulse Oximetry 98 06/06/25 17:29 Oxygen Delivery Room Air 06/06/25 17:29 Temperature 97.9 F 06/06/25 17:29 Pulse Rate 87 06/06/25 19:16 Respiratory Rate 14 06/06/25 19:16 Blood Pressure 146/81 H 06/06/25 19:16 Pulse Oximetry 100 06/06/25 19:16 Oxygen Delivery Room Air 06/06/25 17:50 MDM - Altered Mental Status MDM Narrative Medical decision making narrative: 80-year-old female Presenting for altered mental status. On initial evaluation patient was in no acute distress afebrile, hemodynamic stable. Differentials include but are not limited to: CVA, TIA, ICH, meningitis, UTI, cancer, drug intoxication, hypoglycemia, electrolyte abnormality Notable exam findings: Nonfocal neuro exam. Malodorous. Heart and lungs clear. Abdomen soft and nontender. Notable lab findings: Leukocytosis at 13.7 with neutrophil predominance. Creatinine elevated at 1.67. Lactic acid elevated at 3.0. CK elevated at 3500. UA showed microscopic hematuria without bacteriuria. COVID/flu/RSV negative. Notable imaging findings: Chest x-ray showed no acute process. CT head showed no acute process. CTA head/neck showed stenotic or hypoplastic right vertebral artery with dominant left vertebral artery. Unclear what caused the patient's altered mental status at this time. She does have rhabdomyolysis at this time. She will require admission for this. She was given 3 L fluids sore cc per hour. Case was discussed with hospitalist, recommends Neurology consult regarding CTA findings. Discussed case with Dr. Sanchez, neurology, unlikely to be causing symptoms at this time, does recommend adding EEG and MRI tomorrow. Medical Records Attestation: I reviewed the patient's medical records. Lab Data Attestation: I reviewed the patient's lab results. 06/06/25 17:46 06/06/25 17:46 Labs: Lab Results 06/06/25 06/06/25 06/06/25 Range/Units 17:46 17:46 18:56 WBC 13.7 H (4.5-10.0) K/mm3 RBC 4.85 (4.2-5.4) M/mm3 Hgb 15.6 H (12.0-15.0) g/dL Hct 45.3 (37.0-47.0) % MCV 93.4 (80-100) fl MCH 32.2 (26-34) pg MCHC 34.4 (32-36) g/dl RDW 13.0 (11.5-14.5) % Plt Count 256 (150-375) k/mm3 MPV 9.8 (7.4-10.4) fl Immature Gran % (Auto) Not Reportable Neut % (Auto) Not Reportable Lymph % (Auto) Not Reportable [place] % (Auto) Not Reportable Eos % (Auto) Not Reportable Baso % (Auto) Not Reportable Lymph # (Auto) Not Reportable [place] # (Auto) Not Reportable Eos # (Auto) Not Reportable Baso # (Auto) Not Reportable Abs Immat Gran (auto) Not Reportable Absolute Neuts (auto) Not Reportable Absolute Nucleated RBC Not Reportable Total Counted 100 Neutrophils % (Manual) 87 H (46-73) % Band Neutrophils % 3 (0-6) % Lymphocytes % (Manual) 4.0 L (18-44) % Monocytes % (Manual) 6 (3-9) % Nucleated RBC % Not Reportable Abs Neuts (Manual) 12.33 H (1.3-6.7) K/mm3 Abs Lymphs (Manual) 0.54 L (1.1-4.5) K/mm3 Abs Monocytes (Manual) 0.82 (0.1-0.90) K/mm3 Platelet Estimate Adequate (Adequate) Clumped Platelets Present Schistocytes None seen Sodium 137 (137-145) mmol/L Potassium 3.8 (3.4-5.0) mmol/L Chloride 101 (98-107) mmol/L Carbon Dioxide 22 (22-30) mmol/L Anion Gap 14 H (4-12) mmol/L BUN 36 H (7-17) mg/dL Creatinine 1.67 H (0.7-1.0) mg/dL Estim Creat Clear Calc 23 ml/min Estimated GFR 30 L (59 - ) Glucose 143 H (65-110) mg/dL Lactic Acid 3.0 H (0.7-2.0) mmol/L Calcium 8.9 (8.4-10.2) mg/dL Total Bilirubin 1.3 (0.2-1.3) mg/dL AST 120 H (14-36) U/L ALT 49 H (6-35) U/L Alkaline Phosphatase 63 (38-126) U/L Total Creatine Kinase 3501 H Cancelled (30-135) U/L Total Protein 8.5 H (6.3-8.2) g/dL Albumin 4.8 (3.5-5.1) g/dL Urine Color Dark yellow (Yellow) Urine Appearance Cloudy H (Clear) Urine pH 5.0 (5.0-9.0) Ur Specific [place] 1.023 (1.001-1.035) Urine Protein 2+ H (Negative) mg/dL Urine Glucose (UA) Negative (Negative) mg/dL Urine Ketones Trace H (Negative) mg/dL Ur Blood (Man) 2+ H (Negative) Urine Nitrate Negative (Negative) Urine Bilirubin 1+ H (Negative) Urine Urobilinogen 1.0 (<2.0) mg/dL Leukocyte Esterase Rfl Negative (Negative) [place]/UL Urine RBC 11-20 H (0-2) /hpf Urine WBC 0-5 (0-3) /hpf Ur Squamous Epith Cells Few (Few) /hpf Urine Bacteria None seen /hpf Urine Casts >20 Hyaline Casts Present (None) /lpf Influenza A (RT-PCR) (Negative) Influenza B (RT-PCR) (Negative) RSV (RT-PCR) (Negative) SARS-CoV-2 RNA (RT-PCR) (Negative) 06/06/25 06/06/25 Range/Units 19:27 20:57 WBC (4.5-10.0) K/mm3 RBC (4.2-5.4) M/mm3 Hgb (12.0-15.0) g/dL Hct (37.0-47.0) % MCV (80-100) fl MCH (26-34) pg MCHC (32-36) g/dl RDW (11.5-14.5) % Plt Count (150-375) k/mm3 MPV (7.4-10.4) fl Immature Gran % (Auto) Neut % (Auto) Lymph % (Auto) [place] % (Auto) Eos % (Auto) Baso % (Auto) Lymph # (Auto) [place] # (Auto) Eos # (Auto) Baso # (Auto) Abs Immat Gran (auto) Absolute Neuts (auto) Absolute Nucleated RBC Total Counted Neutrophils % (Manual) (46-73) % Band Neutrophils % (0-6) % Lymphocytes % (Manual) (18-44) % Monocytes % (Manual) (3-9) % Nucleated RBC % Abs Neuts (Manual) (1.3-6.7) K/mm3 Abs Lymphs (Manual) (1.1-4.5) K/mm3 Abs Monocytes (Manual) (0.1-0.90) K/mm3 Platelet Estimate (Adequate) Clumped Platelets Schistocytes Sodium (137-145) mmol/L Potassium (3.4-5.0) mmol/L Chloride (98-107) mmol/L Carbon Dioxide (22-30) mmol/L Anion Gap (4-12) mmol/L BUN (7-17) mg/dL Creatinine (0.7-1.0) mg/dL Estim Creat Clear Calc ml/min Estimated GFR (59 - ) Glucose (65-110) mg/dL Lactic Acid 3.0 H (0.7-2.0) mmol/L Calcium (8.4-10.2) mg/dL Total Bilirubin (0.2-1.3) mg/dL AST (14-36) U/L ALT (6-35) U/L Alkaline Phosphatase (38-126) U/L Total Creatine Kinase (30-135) U/L Total Protein (6.3-8.2) g/dL Albumin (3.5-5.1) g/dL Urine Color (Yellow) Urine Appearance (Clear) Urine pH (5.0-9.0) Ur Specific [place] (1.001-1.035) Urine Protein (Negative) mg/dL Urine Glucose (UA) (Negative) mg/dL Urine Ketones (Negative) mg/dL Ur Blood (Man) (Negative) Urine Nitrate (Negative) Urine Bilirubin (Negative) Urine Urobilinogen (<2.0) mg/dL Leukocyte Esterase Rfl (Negative) [place]/UL Urine RBC (0-2) /hpf Urine WBC (0-3) /hpf Ur Squamous Epith Cells (Few) /hpf Urine Bacteria /hpf Urine Casts Hyaline Casts (None) /lpf Influenza A (RT-PCR) Negative (Negative) Influenza B (RT-PCR) Negative (Negative) RSV (RT-PCR) Negative (Negative) SARS-CoV-2 RNA (RT-PCR) Negative (Negative) Imaging Data Attestation: I personally reviewed and interpreted this imaging study as follows: My impression: Chest x-ray: Normal cardiac silhouette, no consolidations, no pleural effusions, no pulmonary vascular congestion Radiologist's impression: Impressions Head CT 06/06/25 19:55 IMPRESSION: 1. No acute intracranial abnormality. 2: Moderate sinus disease, possibly chronic. Chest X-Ray 06/06/25 20:07 Impression: 1: No acute cardiopulmonary disease. 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 Otherwise no hemodynamically significant stenosis is noted of the cervical and intracranial arterial vasculature. ECG Data EKG #1: Attestation: I personally reviewed and interpreted this ECG as follows: ECG completion date: 06/06/25 ECG completion time: 18:29 Interpretation: Normal sinus rhythm, normal axis, normal intervals, nonspecific T-wave changes, no ST changes Discharge Plan Discharge Clinical Impression: ASHWINI (acute kidney injury) Rhabdomyolysis Qualifiers: Rhabdomyolysis type: non-traumatic Qualified Code(s): M62.82 - Rhabdomyolysis Encephalopathy Qualifiers: Encephalopathy type: unspecified encephalopathy Qualified Code(s): G93.40 - Encephalopathy, unspecified Patient Disposition: Still a Patient Condition: Stable Patient Language: Portuguese Prescriptions: No Action ibuprofen 600 mg tablet 600 mg PO TID PRN (Reason: pain) Qty: 30 0RF acetaminophen 500 mg capsule 1,000 mg PO Q6H PRN (Reason: pain) Qty: 30 0RF Follow-up/Referrals: Wili,Colt Adams MD [Primary Care Provider]
--- NOTE | 2025-06-06 17:44 | ECG_ITS ---
Test Date: 2025-06-06 18:29:31 Measurements Intervals [place] Rate: 78 P: 0 DE: 154 QRS: 80 QRSD: 82 T: -6 QT: 389 QTc: 444 Interpretive Statements SINUS RHYTHM POSSIBLE RIGHT VENTRICULAR CONDUCTION DELAY [RSR (QR) IN V1/V2] NONSPECIFIC T-WAVE ABNORMALITY No previous ECG available for comparison Electronically Signed On 06-06-2025 18:47:45 [employer] by Keanu Julien M.D.
[2025-06-06 18:15] LABS: Hematocrit 45.3 % (37.0-47.0); Hemoglobin 15.6 g/dL (12.0-15.0); Mean Corpuscular HGB Conc 34.4 g/dl (32-36); Mean Corpuscular Hemoglobin 32.2 pg (26-34); Mean Corpuscular Volume 93.4 fl (80-100); Platelet Count Result 256 k/mm3 (150-375); Red Blood Count 4.85 M/mm3 (4.2-5.4); White Blood Count 13.7 K/mm3 (4.5-10.0)
[2025-06-06] MEDS: SODIUM CHLORIDE 0.9% IV 1,000 ML 999 ML IV CONT ×3 (18:22→20:25)
[2025-06-06 18:30] LABS: Alanine Aminotransferase 49 U/L (6-35); Albumin Level 4.8 g/dL (3.5-5.1); Alkaline Phosphatase 63 U/L (38-126); Anion Gap 14 mmol/L (4-12); Aspartate Amino Transferase 120 U/L (14-36); Bilirubin,Total 1.3 mg/dL (0.2-1.3); Blood Urea Nitrogen 36 mg/dL (7-17); Calcium 8.9 mg/dL (8.4-10.2); Carbon Dioxide 22 mmol/L (22-30); Chloride 101 mmol/L (98-107); Estimated CRCL calculation 23 ml/min; Estimated Glomerular Filt Rate 30; Glucose 143 mg/dL (65-110); Potassium 3.8 mmol/L (3.4-5.0); Sodium 137 mmol/L (137-145); Total Protein 8.5 g/dL (6.3-8.2)
--- OUTSIDE RECORDS SUMMARY | 2025-06-06 18:31 | XMS_ITS | Clinical Summary ---
Author Organization [facility] Address [address] [place] [address] Care Team Providers Care Refinery Operator Helper Name Role Phone Colt Rasheed MD Primary Care Provider [phone] Allergies Active Allergy Reactions Criticality Noted Date [...] DROP INTO BOTH EYES EVERY 12 HOURS 023 Active timolol (TIMOPTIC) 0.5 % ophthalmic solution INSTILL ONE DROP INTO EACH EYE TWICE DAILY. SCHEDULE APPOINTMENT FOR REFILL 023 Active WALKER MISC, DME,Indications:S eliud stenosis of lumbar region with neurogenic claudication,Unst logan gait,Dizziness 1 Device by Does not apply route daily. 1 Device 024 Active ibuprofen (MOTRIN) 600 MG tablet Take 1 tablet (600 mg total) by mouth every 6 (six) hours as needed. 025 Active simvastatin (ZOCOR) 10 MG tabletIndications :Mixed hyperlipidemia TAKE 1 TABLET BY MOUTH EVERYDAY AT BEDTIME 90 tablet 1 025 Active celecoxib (CELEBREX) 200 MG capsuleIndication s:Spinal stenosis of lumbar region TAKE 1 CAPSULE BY MOUTH EVERY DAY 90 capsule 1 025 Active indapamide (LOZOL) 1.25 MG tabletIndications :Primary hypertension TAKE 1 TABLET BY MOUTH EVERY DAY IN THE MORNING 90 tablet 1 025 Active amLODIPine (NORVASC) 10 MG tabletIndications :Primary hypertension TAKE 1 TABLET BY MOUTH EVERY DAY 90 tablet 1 025 Active potassium chloride CR (K-TAB) 10 MEQ Tab CR tabletIndications :Primary hypertension TAKE 3 TABLETS (30 MEQ TOTAL) BY MOUTH 2 (TWO) TIMES DAILY. 540 tablet 1 025 Active oxybutynin XL (DITROPAN-XL) 5 MG 24 hr tabletIndications :Mixed stress and urge urinary incontinence Take 1 tablet (5 mg total) by mouth daily. 30 tablet 3 025 Active lisinopril (PRINIVIL) 10 MG tabletIndications :Primary hypertension Take 1 tablet (10 mg total) by mouth daily. 30 tablet 1 025 Active lisinopril (PRINIVIL) 10 MG tabletIndications :Primary hypertension Take 1 tablet (10 mg total) by mouth daily. 30 tablet 1 025 2024 Discontinued Active Problems Problem Noted Date Diagnosed Date Spinal stenosis of lumbar region 09/03/2023 Primary hypertension 07/09/2022 Mixed hyperlipidemia 07/09/2022 Gastroesophageal reflux disease without esophagi tis 07/09/2022 Vertigo of central origin, unspecified lateralit y 10/16/2020 Vestibular vertigo 02/08/2016 Asymmetrical sensorineural hearing loss 09/12/19 16 Benign paroxysmal positional vertigo 09/12/2015 Epidemic vertigo 09/12/2015 Dizziness 09/07/2015 Hyperparathyroidism 07/17/2010 Encounters Date Type Department Care Team Description 05/19/2025 9:40 AM CDT Office Visit [facility] Family & Internal Medicine [address] [address] Colt Rasheed MD Follow Up (Patient is here for a 6 month follow up.); Hypertension; Hyperlipidemia; GERD; Hyperparathyroidism 05/19/2025 Travel 05/09/2025 10:20 AM CDT [facility] [address] [place] [address] Sana Vergara MD Follow Up (LP Results) 05/09/2025 Travel 04/26/2025 [facility] [address] [facility] [place] [id number] Sana Vergara MD Question 03/30/2025 8:21 AM CDT - 03/30/2025 11:59 PM CDT Hospital Encounter [facility] [place] [address] Dickson Arnold MD Discharge Disposition: Home or Self Care (Routine Discharge) 03/30/2025 8:21 AM CDT - 03/30/2025 3:05 PM CDT Hospital Encounter [facility] [place] [address] Sana Vergara MD Discharge Disposition: Home or Self Care (Routine Discharge) 03/30/2025 Travel 03/22/2025 Orders Only [facility] [place] [address] Dickson Arnold MD 03/08/2025 Pre-Procedure Call [facility] [place] [address] Dickson Arnold MD Preprocedure Call 03/07/2025 8:20 AM CDT [facility] [address] [place] [address] Sana Vergara MD New Patient (Unsteady gait) 03/07/2025 Travel 03/06/2025 Scan HEALTH INFO SRVCS Scanned, [facility] from Last 3 Months Immunizations Immunization Administration Dates Next Due FLUAD (IIV, Trivalent, 0.5 M L Pre-filled Syringe) 05/18/2019 Fluzone High Dose (IIV, triv alent, 0.5mL) 05/19/2025,06/24/2024,05/18/2018,2016,05/16/2016,06/01/2015 Influenza (Generic) 05/18/2020,05/18/2019 Influenza Adult (Generic) 05/18/2018,,05/16/2016,2014 PFIZER COVID-19 (12+) MRNA, LNP-S, PF, DWIGHT-SUCROSE, 30 MCG/0.3 ML (COMIRNATY) 11/17/2024 Pneumococcal (Pneumovax 23) 05/18/2019 Pneumococcal (Prevnar 13) 04/15/2018 Pneumococcal (Prevnar 20) 08/13/2023 Family History Medical History Relation Comments Kidney failure Brother Relation Status Comments Brother Social History Tobacco Use Types Packs/Day Years Used Date Smoking Tobacco: Never Passive Smoke Exposure: Never Smokeless Tobacco: Never Tobacco Cessation:Counseling Given: No Alcohol Use Standard Drinks/Week Comments Yes 0 (1 standard drink = 0.6 oz pure alcohol) rarely; couple glasses of wine yearly PHQ-2 Answer Date Recorded Patient Health Questionnaire-2 Score 0 11/17/2024 Comments No Sex and Gender Information Value Date Recorded Sex Assigned at Female 11/17/2024 10:30 AM CDT Legal Sex Female 9:50 AM CDT Gender Identity Not on file Sexual Orientation Not on file Last Filed Vital Signs Vital Sign Reading Time Taken Comments Blood Pressure 178/94 05/19/2025 9:46 AM CDT Pulse 74 05/19/2025 9:34 AM CDT Temperature 36.3 C (97.3 F) 05/19/2025 9:34 AM CDT Respiratory Rate 16 05/09/2025 10:32 AM CDT Oxygen Saturation 92% 05/19/2025 9:34 AM CDT Inhaled Oxygen Concentration - - Weight 71.7 kg (158 lb) 05/19/2025 9:34 AM CDT Height 162.6 cm (5' 4) 05/19/2025 9:34 AM CDT Body Mass Index 27.12 05/19/2025 9:34 AM CDT Plan of Treatment Upcoming Encounters Date Type Department Care Team (Late st Contact Info) Description 06/15/2025 9:20 AM PAPER SPOOLER Office Visit [facility] Family & Internal Medicine [address] [address] Colt Rasheed MD [address] [place] [address] Health Maintenance Due Date Last Done Comments DTaP, Tdap and Td Vaccines (1 - Tdap) 02/26/1964 Zoster Vaccines (1 of 2) 1995 Annual Medicare Wellness Visit 2010 RSV Immunization or 60+ Years (1 - 1-dose 75+ series) 02/26/2020 COVID-19 Vaccine ( season) 2025 11/17/2024, 06/24/2024, 05/16/2022, Additional history exists Dexa Scan (General) Completed 04/26/2020 Pneumococcal Vaccine: 50+ Years Completed 08/13/2023, 05/18/2019, 04/15/2018 PHQ-2 (Physician [place]) Completed 11/17/2024 Influenza Adult Completed 05/19/2025, 06/05, 05/18/2020, Additional history exists Hepatitis A Vaccines Aged Out No long er eligible based on patient's age to complete this topic Meningococcal B Vaccine Aged Out No l onger eligible based on patient's age to complete this topic Meningococcal Vaccine Aged Out No charity jeronimo eligible based on patient's age to complete this topic RSV Immunizations Under 20 Months Aged Out No longer eligible based on patient's age to complete this topic Procedures Procedure Name Priority Date/Time Associated Diagnosis Comments IR LUMB PUNCTURE DIAGNOSTIC Routine 03/30/2025 11:10 AM CDT NPH (normal pressure hydrocephalus) ([facility] GLUCOSE CSF Routine 03/30/2025 10:46 AM CDT NPH (normal pressure hydrocephalus) ([facility]) PROTEIN TOTAL CSF Routine 03/30/2025 10: 46 AM CDT NPH (normal pressure hydrocephalus) (CMS/HCC HHS/HCC) CULTURE, CSF W/ GRAM STAIN Routine 03/30/2025 10:46 AM CDT NPH (normal pressure hydrocephalus) (CMS/HCC HHS/HCC) CELL COUNT, CSF Routine 03/30/2025 10:46 AM CDT NPH (normal pressure hydrocephalus) (CMS/HCC HHS/HCC) PLATELET COUNT, AUTO Routine 03/30/2025 8:38 AM CDT NPH (normal pressure hydrocephalus) (CMS/HCC HHS/HCC) PARTIAL THROMBOPLASTIN TIME,PTT Routine 03/30/2025 8:38 AM CDT NPH (normal pressure hydrocephalus) (CMS/HCC HHS/HCC) PROTHROMBIN TIME, VENOUS Routine 03/30/2025 8:38 AM CDT NPH (normal pressure hydrocephalus) (CMS/HCC HHS/HCC) BONE DENSITY GENERIC (SCAN ORDER) 04/26/2020 from Last 3 Months or Most Recently Relevant to Health Maintenance Results * IR LUMB PUNCTURE DIAGNOSTIC (03/30/2025 11:10 AM CDT) Anatomical Region Laterality Modality Spine Interventional R adiology, Radiographic Imaging, Radiographic Imaging 03/30/2025 10:3 9 AM CDT Impressions 03/30/2025 11:57 AM CDT IMPRESSION: 1. Fluoroscopy guided lumbar puncture performed at the L3-L4 level. 2. Opening CSF pressure of 14 cm H2O measured prone and 5 cm H2O in a left lateral decubitus position. 3. Total 25 mL mL of CSF fluid collected. 4. Pre and post drainage gait assessment performed by physical therapy. 5. No immediate complication Ordered By: SANA VERGARA Interpreted By: Dickson Arnold MD, 03/30/2025 10:39 AM Narrative 03/30/2025 11:57 AM CDT [facility] [address] [place], [place] [address] Procedure: IR Lumbar puncture diagnostic with imaging Exam Date/Time: 03/30/2025 10:19 AM Indication: 50 female. Lumbar puncture with large volume CSF drainage. Pre and post drainage gait assessment. Normal pressure hydrocephalus Comparison: None Procedure technique and findings: Informed verbal and written consent was obtained with patient/patient's medical power of district attorney. The procedure was discussed including the rationale, alternatives, benefits and risks. Timeout was performed Patient was positioned prone on the fluoroscopy procedure table. The L3-L4 interlaminar space was localized with fluoroscopy. Sterile technique including hand wash with soap and water, was employed for the procedure. The skin was prepped and draped. 1% lidocaine was administered for local anesthesia. A 22 gauge spinal needle was then advanced under fluoroscopic guidance into the thecal sac. Clear CSF fluid was returned. An opening CSF pressure of 14 cm H2O was measured with the patient prone. Patient was then positioned in a left lateral decubitus position to assist with fluid collection. The pressure was remeasured however a pressure of only 5 cm H2O was obtained. A total of 25 mL clear cerebrospinal fluid was then collected and distributed amongst 4 vials. No closing CSF pressure measured. The stylet was replaced and the needle removed. Patient remained asymptomatic and tolerated the procedure well. No immediate complication. Plate Developer: Dr. Arnold Radiation dose Air Kerma: 78.1 mGy; total 4 images recorded. Procedure Note Dickson Arnold MD - 03/30/[address] [address] Procedure: IR Lumbar puncture diagnostic with imaging Exam Date/Time: 03/30/2025 10:19 AM Indication: 50 female. Lumbar puncture with large volume CSF drainage. Preand post drainage gait assessment. Normal pressure hydrocephalus Comparison: None Procedure technique and findings: Informed verbal and written consent was obtained with patient/patient'smedical power of district attorney. The procedure was discussed including therationale, alternatives, benefits and risks. Timeout was performed Patient was positioned prone on the fluoroscopy procedure table. The L3-C6sstfviiwhgxs space was localized with fluoroscopy. Sterile technique including hand wash with soap and water, was employedfor the procedure. The skin was prepped and draped. 1% lidocaine wasadministered for local anesthesia. A 22 gauge spinal needle was thenadvanced under fluoroscopic guidance into the thecal sac. Clear CSF fluidwas returned. An opening CSF pressure of 14 cm H2O was measured with the patient prone.Patient was then positioned in a left lateral decubitus position to assistwith fluid collection. The pressure was remeasured however a pressure ofonly 5 cm H2O was obtained. A total of 25 mL clear cerebrospinal fluid wasthen collected and distributed amongst 4 vials. No closing CSF pressure measured. The stylet was replaced and the needleremoved. Patient remained asymptomatic and tolerated the procedure well. Noimmediate complication. Plate Developer: Dr. Arnold Radiation dose Air Kerma: 78.1 mGy; total 4 images recorded. IMPRESSION: 1. Fluoroscopy guided lumbar puncture performed at the L3-L4 level. 2. Opening CSF pressure of 14 cm H2O measured prone and 5 cm H2O in a leftlateral decubitus position. 3. Total 25 mL mL of CSF fluid collected. 4. Pre and post drainage gait assessment performed by physical therapy. 5. No immediate complication Ordered By: SANA VERGARA Interpreted By: Dickson Arnold MD, 03/30/2025 10:39 AM Sana Vergara MD INTERVENTIONAL RADIOLOGY Final Result * CULTURE, CSF W/ GRAM STAIN (03/30/2025 10:46 AM CDT) SPEC DESCRIPTION CEREBROSPINAL FLUID 03/30/2025 11:22 AM CDT [facility] SPECIAL REQUESTS NO SPECIAL REQUEST 03/30/2025 11:22 AM CDT [facility] GRAM STAIN RESULT NO WHITE BLOOD CELLS SEEN 03/30/2025 1:13 PM CDT [facility] GRAM STAIN RESULT NO ORGANISMS SEEN 03/30/2025 1:13 PM CDT [facility] CULTURE RESULT NO GROWTH 5 DAYS 08/2024 10:14 AM CDT [facility] CEREBROSPINAL FLUID SPECIMEN / Unknown 03/30/2025 10:46 AM CDT 03/30/2025 11:23 AM CDT us Sana Vergara MD MICROBIOLOGY - GENERAL O RDERABLES Final Result Performing Organization Address City/[facility]/ZIP Co de Phone Number [facility] [address] [place] [address], [place] [phone] * CELL COUNT, CSF (03/30/2025 10:46 AM CDT) TUBE NUMBER 3 03/30/2025 11:50 AM CDT [facility] TOTAL VOLUME (CSF) 25.0 ML 03/30/2025 11:50 AM CDT [facility] COLOR (CSF) CLEAR 03/30/2025 11:50 AM CDT [facility] CLARITY (CSF) COLORLESS 03/30/2025 11:50 AM CDT [facility] RBC (CSF) 0 CELLS/UL 03/30/2025 11:50 AM CDT [facility] TOTAL NUCLEATED CELL (CSF) 0 0 - 5 CELLS/UL 03/30/2025 11:50 AM CDT [facility] CSF, LUMBAR 03/30/2025 10:4 6 AM CDT us Sana Vergara MD BODY FLUIDS AND STOOLS O RDERABLES Final Result [facility] [address] [place] [address], [place] [phone] * GLUCOSE CSF (03/30/2025 10:46 AM CDT) GLUCOSE (CSF) 56 40 - 70 MG/DL 03/30/2025 11:31 AM CDT [facility] CSF, LUMBAR 03/30/2025 10:4 6 AM CDT Sana Vergara MD BODY FLUIDS AND STOOLS O RDERABLES Final Result [facility] [address] [place] [phone], * (ABNORMAL) PROTEIN TOTAL CSF (03/30/2025 10:46 AM CDT) TOTAL PROTEIN (CSF) 85(H) 15 - 45 MG/DL 03/30/2025 11:31 AM CDT [facility] CSF, LUMBAR 03/30/2025 10:4 6 AM CDT Sana Vergara MD BODY FLUIDS AND STOOLS O RDERABLES Final Result [facility] [address] [place] [phone], * PLATELET COUNT, AUTO (03/30/2025 8:38 AM CDT) PLT 223 130 - 400 x10'3/uL 03/30/2025 8:52 AM CDT [facility] MPV 9.9 9.3 - 12.2 FL 03/30/2025 8:52 AM CDT [facility] 03/30/2025 8:38 AM CDT us Dickson Arnold MD LABORATORY Final Result Performing Organization Address City/[facility]/ZIP Co de Phone Number [facility] [address] [place] [address], [place] [phone] * PTT, PARTIAL THROMBOPLASTIN TIME (03/30/2025 8:38 AM CDT) PTT 28.5 25.1 - 36.5 SEC 03/30/2025 9:14 AM CDT [facility] 03/30/2025 8:38 AM CDT us Dickson Arnold MD LABORATORY Final Result Performing Organization Address [facility] Co de Phone Number [facility] [address] [place] [address], [place] [phone] * PROTIME/INR, VENOUS (03/30/2025 8:38 AM CDT) PROTIME 11.4 10.2 - 12.9 SEC 03/30/2025 9:14 AM CDT [facility] INR 1.0 03/30/2025 9:14 AM CDT [facility] Comment: Recommended INR Therapeutic Goals: 2.0-3.0 Routine Therapy 2.5-3.5 Mechanical Prosthetic Valves (High Risk) 03/30/2025 8:38 AM CDT us Dickson Arnold MD LABORATORY Final Result Performing Organization Address City/[facility]/ZIP Co de Phone Number [facility] [address] [place] [address], [place] [phone] * BONE DENSITY GENERIC (04/26/2020) Anatomical Region Laterality Modality Other 04/26/2020 us [facility] Scanned SCANNING Final Resu lt from Last 3 Months or Most Recently Relevant to Health Maintenance Insurance MEDICARE [facility] Care Teams Refinery Operator Helper Relationship Specialty Start Date End Date Colt Rasheed MD [address] [place] [id number] PCP - General INTERNAL MEDICINE 07/09/22
--- OUTSIDE RECORDS SUMMARY | 2025-06-06 18:31 | XMS_ITS | Clinical Summary ---
Author Organization [facility] Address [facility] [place] [address] Care Team Providers Care Sales Record Clerk Name Role Phone Sam Renteria MD Primary Care Provider [phone] Allergies Active Allergy Reactions Criticality Noted Date [...] on file Legal Sex Female 3:01 AM POWER HAIR CLIPPER Gender Identity Not on file Sexual Orientation Not on file Last Filed Vital Signs Vital Sign Reading Time Taken Comments Blood Pressure 148/90 09/12/2015 11:24 AM POWER HAIR CLIPPER Pulse 84 11/16/2013 10:04 AM CDT Temperature - - Respiratory Rate - - Oxygen Saturation 100% 11/12/2012 8:00 AM CDT Inhaled Oxygen Concentration - - Weight 79.4 kg (175 lb) 09/12/2015 11:24 AM POWER HAIR CLIPPER Height 167.6 cm (5' 6) 09/12/2015 11:24 AM POWER HAIR CLIPPER Body Mass Index 28.25 09/12/2015 11:24 AM POWER HAIR CLIPPER Plan of Treatment Not on file Insurance Member Subscriber Plan / Payer ( fective 2020-) Name:Adelita Arteaga Relation to Subscriber:Self Name:Adelita Arteaga Payer ID:[id number] Group ID:[id number] Type:[employer] Address: [address] [address] MEDICARE MEDICARE COMMERCIAL GENERIC Care Teams Sales Record Clerk Relationship Specialty Start Date End Date Sam Renteria MD [address] [facility] [address] [place] [address] PCP - General Cardiovascular Disease 08/14/20
[2025-06-06 18:55] LABS: Band Neutrophils Percent 3 % (0-6); Lymphocytes Absolute Manual 0.54 K/mm3 (1.1-4.5); Lymphocytes Percent Manual 4.0 % (18-44); Monocytes Absolute Manual 0.82 K/mm3 (0.1-0.90); Monocytes Percent Manual 6 % (3-9); Neutrophils Absolute Manual 12.33 K/mm3 (1.3-6.7); Neutrophils Percent Manual 87 % (46-73); Schistocytes None Seen; Total Cells Counted 100
[2025-06-06 19:03] LABS: Creatine Kinase 3501 U/L (30-135)
[2025-06-06 19:18] LABS: Add Urine Microscopic? YES; Appearance Urine Cloudy (Clear); Glucose Urine UA Negative (Negative); Leukocyte Esterase Ur Negative LEU/UL (Negative); Nitrate Urine Negative (Negative); Non Pathogenic Casts >20; Specific Grav Ur 1.023 (1.001-1.035)
[2025-06-06 20:07] LABS: Influenza A QL RT-PCR Negative (Negative); Influenza B QL RT-PCR Negative (Negative); RSV RNA, RT-PCR Negative (Negative); SARS-CoV-2 RNA PCR Negative (Negative)
[2025-06-06] MEDS: SODIUM CHLORIDE 0.9% IV 1,000 ML 100 ML IV CONT (20:26)
--- NOTE | 2025-06-06 23:39 | PC.NURSE ---
This RN called and spoke to Yonis pt POA and friend and gave update on pt status.
[2025-06-07] VITALS (9 sets, daily range): BP systolic 118–145; BP diastolic 55–69; PULSE 71–89; RESP 16–19; TEMP 36.1–37.2; O2SAT 96–100
--- NOTE | 2025-06-07 00:31 | PM.IMHP ---
H&P: HPI History of Present Illness Date/Time: 06/07/25 00:31 Chief Complaint: Altered mental status Narrative: 80-year-old female presents to [facility] ER on 06/06/2025 with altered mental status. Per EMS, the patient lives alone. She was apparently found by her neighbor stuck on her toilet and unable to get up. There is no reported history of dementia. Her POA was contacted and reported she may have been missing her medications although the only reported medications are timolol, simvastatin, potassium chloride, pain killers, acetaminophen. The patient appeared confused in the ER but otherwise resting comfortably. The only thing she reported was a dry cough for a few days. Afebrile, blood pressure 174/101 which did improve. Saturating 97% on room air. WBC 13.7, with neutrophil predominance, ABG demonstrates pCO2 30.2, pH 7.445, bicarb 20.3, Chem 7 with serum creatinine 1.67, BUN 36, anion gap 14, lactic acid 3, mild transaminitis AST greater than ALT, total creatinine kinase 3500, urinalysis appearance cloudy however few squamous cells, no bacteria or pyuria. Nitrate negative. Head CT without acute findings, moderate sinus disease thought to be chronic. Chest x-ray without any acute disease. 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 Otherwise, no hemodynamically significant stenosis noted of the cervical and intracranial arterial vasculature. Neurology consulted from ER did not recommend any further immediate workup or treatment. Patient was administered aspirin 325 mg p.o. x1, 3 L normal saline bolus and placed on 100 cc of normal saline infusion per hour. Review of Systems Review of Systems: All systems reviewed & are unremarkable except as noted in HPI and below (Subjective) [facility] Social History Social History Smoking status: Never smoker Second hand tobacco smoke exposure: No Alcohol intake: current Drinks per week: 1 Substance use: never Spiritual care concerns: No Meds Home Medications and Allergies Home Medications ?Medication ?Instructions ?Recorded ?Confirmed ?Type acetaminophen 500 mg capsule 1,000 mg (2 x 500 mg) PO Q6H PRN 11/11/24 06/07/25 Rx pain #30 caps ibuprofen 600 mg tablet 600 mg PO TID PRN pain #30 tabs 11/11/24 06/07/25 Rx brimonidine 0.2 % eye drops 1 drp EACH EYE .Q12 06/07/25 06/07/25 History celecoxib 200 mg capsule 200 mg PO DAILY 06/07/25 06/07/25 History indapamide 1.25 mg tablet 1.25 mg PO DAILY 06/07/25 06/07/25 History potassium chloride 10 mEq 10 meq PO BID 06/07/25 06/07/25 History tablet,extended release simvastatin 10 mg tablet 10 mg PO HS 06/07/25 06/07/25 History timolol maleate 0.5 % eye drops 1 drp EACH EYE Q12H 06/07/25 06/07/25 History Allergies Allergy/AdvReac Type Severity Reaction Status Date / Time Tetracyclines Allergy Intermediate Hives Verified 06/07/25 01:52 Vital Signs Vital Signs - 24 hr 06/06/25 17:29 06/06/25 17:45 06/06/25 17:46 Temperature 97.9 F Pulse Rate 109 H 101 H 99 Respiratory Rate 19 12 19 Blood Pressure 138/79 138/83 Pulse Oximetry 98 98 96 Oxygen Delivery Room Air 06/06/25 17:50 06/06/25 18:00 06/06/25 18:00 Temperature Pulse Rate 108 H 104 H Respiratory Rate 15 Blood Pressure Pulse Oximetry 100 Oxygen Delivery Room Air 06/06/25 18:01 06/06/25 18:15 06/06/25 18:16 Temperature Pulse Rate 103 H 95 98 Respiratory Rate 20 17 22 H Blood Pressure 174/101 H 152/86 H Pulse Oximetry 98 100 100 Oxygen Delivery 06/06/25 18:30 06/06/25 18:31 06/06/25 18:45 Temperature Pulse Rate 81 89 98 Respiratory Rate 17 20 17 Blood Pressure 162/81 H Pulse Oximetry 95 Oxygen Delivery 06/06/25 18:46 06/06/25 19:00 06/06/25 19:03 Temperature Pulse Rate 100 98 96 Respiratory Rate 20 19 21 H Blood Pressure 146/67 H Pulse Oximetry 98 100 94 Oxygen Delivery 06/06/25 19:08 06/06/25 19:15 06/06/25 19:16 Temperature Pulse Rate 94 92 87 Respiratory Rate 20 15 14 Blood Pressure 146/87 H 146/81 H Pulse Oximetry 100 100 100 Oxygen Delivery 06/06/25 19:41 06/06/25 19:46 06/06/25 20:01 Temperature Pulse Rate 90 87 89 Respiratory Rate 20 16 19 Blood Pressure 141/80 H 145/83 H 153/85 H Pulse Oximetry 100 100 100 Oxygen Delivery 06/06/25 20:16 06/06/25 20:46 06/06/25 21:45 Temperature Pulse Rate 87 82 86 Respiratory Rate 18 18 16 Blood Pressure 135/79 140/80 Pulse Oximetry 98 99 98 Oxygen Delivery 06/06/25 22:00 06/06/25 22:15 06/06/25 22:45 Temperature Pulse Rate 87 83 70 Respiratory Rate 19 18 15 Blood Pressure Pulse Oximetry 98 96 98 Oxygen Delivery 06/06/25 23:00 06/06/25 23:15 06/06/25 23:23 Temperature Pulse Rate 73 75 64 Respiratory Rate 16 17 18 Blood Pressure 142/80 H Pulse Oximetry 97 97 98 Oxygen Delivery 06/07/25 00:15 Temperature Pulse Rate 88 Respiratory Rate Blood Pressure Pulse Oximetry 97 Oxygen Delivery Exam Const: General: comfortable and no acute distress Other: Pleasantly confused. A&O x1. Nodding off during conversation HENMT: Mouth: Yes dry mucous membranes Eyes: Pupils: Equal, round and reactive pupils present Neck: Neck: supple Resp: Effort & Inspection: normal respiratory effort Auscultation: clear to auscultation bilaterally Cardio: Rate: regular rate Rhythm: regular rhythm Heart sounds: no gallops and no murmurs GI: Inspection: non-distended GI Palp: Yes Soft to palpation and No Tenderness to palpation present (GI) : General: Yes bladder normal to palpation Neuro: Other: Does not participate with exam fully. She moves all 4 extremities spontaneously. Deep tendon reflexes 2+. No apparent lateralizing or focal deficit. Extrem: General: no edema H&P: Results Labs Labs: Short CBC 06/06/25 Range/Units 17:46 WBC 13.7 H (4.5-10.0) K/mm3 Hgb 15.6 H (12.0-15.0) g/dL Hct 45.3 (37.0-47.0) % Plt Count 256 (150-375) k/mm3 [facility] 06/06/25 17:46 Sodium 137 Potassium 3.8 Chloride 101 Carbon Dioxide 22 BUN 36 H Creatinine 1.67 H Glucose 143 H Calcium 8.9 Cardiac Enzymes 11/03/25 11/03/25 Range/Units 17:46 17:46 Total Creatine Kinase 3501 H Cancelled (30-135) U/L Liver Function 06/06/25 Range/Units 17:46 Total Bilirubin 1.3 (0.2-1.3) mg/dL AST 120 H (14-36) U/L ALT 49 H (6-35) U/L Alkaline Phosphatase 63 (38-126) U/L Albumin 4.8 (3.5-5.1) g/dL Urine 06/06/25 Range/Units 18:56 Urine Color Dark yellow (Yellow) Urine Appearance Cloudy H (Clear) Urine pH 5.0 (5.0-9.0) Ur Specific [place] 1.023 (1.001-1.035) Urine Protein 2+ H (Negative) mg/dL Urine Glucose (UA) Negative (Negative) mg/dL Assessment and Plan Assessment and plan (1) ASHWINI (acute kidney injury): Code(s): N17.9 - Acute kidney failure, unspecified Status: Acute (2) Rhabdomyolysis: Qualifiers: Rhabdomyolysis type: non-traumatic Qualified Code(s): M62.82 - Rhabdomyolysis Code(s): M62.82 - Rhabdomyolysis Status: Acute (3) Encephalopathy: Qualifiers: Encephalopathy type: unspecified encephalopathy Qualified Code(s): G93.40 - Encephalopathy, unspecified Code(s): G93.40 - Encephalopathy, unspecified Status: Acute Plan Cause of encephalopathy unknown. Afebrile. No meningismal signs. WBC 13.7 but improving to 10.5 without antibiotic administration. Her ABG did not point toward CO2 narcosis. She has an ASHWINI which has improved with volume resuscitation. Lactic acid has resolved. Transaminitis has improved. Total creatinine kinase is downtrending. Will check for further causes, salicylates, acetaminophen, drug of abuse urine screen, MRI brain, TSH, vitamin B12. Neurology consult. Full code. Ambulate with assistance. Neurologic checks q.4 hours. SCDs. Fall precaution. Continue sodium chloride 100 cc/hour. Continue telemetry to monitor for any arrhythmias. Hospitalist MIPS Advance Care Plan I have confirmed that the patient's Advanced Care Plan is present, code status is documented, or surrogate decision maker is listed in patient medical record.: Yes Medication Reconciliation I have utilized all available resources to obtain, update and review the patients current medications (includes all prescriptions, OTC, herbals, cannabis, and nutritional supplements).: Yes
[2025-06-07 01:40] LABS: Hematocrit 36.7 % (37.0-47.0); Hemoglobin 12.2 g/dL (12.0-15.0); Immature Granulocyte Percent A 0.4 % (0-0.5); Lymphocytes Absolute Auto 0.86 K/mm3 (0.9-3.2); Mean Corpuscular HGB Conc 33.2 g/dl (32-36); Mean Corpuscular Hemoglobin 31.5 pg (26-34); Mean Corpuscular Volume 94.8 fl (80-100); Nucleated Red Blood Cells Absolute Auto 0.000 K/mm3 (0.0-0.012); Nucleated Red Blood Cells Perc 0.0 % (0.0-0.2); Platelet Count Result 201 k/mm3 (150-375); Red Blood Count 3.87 M/mm3 (4.2-5.4); White Blood Count 10.5 K/mm3 (4.5-10.0)
[2025-06-07 01:43] LABS: Ammonia < 9 umol/L (9-30)
[2025-06-07 01:45] LABS: Alanine Aminotransferase 34 U/L (6-35); Albumin Level 3.3 g/dL (3.5-5.1); Alkaline Phosphatase 55 U/L (38-126); Anion Gap 7 mmol/L (4-12); Aspartate Amino Transferase 83 U/L (14-36); Bilirubin,Total 0.9 mg/dL (0.2-1.3); Blood Urea Nitrogen 29 mg/dL (7-17); Calcium 7.3 mg/dL (8.4-10.2); Carbon Dioxide 20 mmol/L (22-30); Chloride 109 mmol/L (98-107); Estimated CRCL calculation 36 ml/min; Estimated Glomerular Filt Rate 51; Glucose 111 mg/dL (65-110); Magnesium 1.8 mg/dL (1.6-2.3); Potassium 3.2 mmol/L (3.4-5.0); Sodium 136 mmol/L (137-145); Total Protein 6.1 g/dL (6.3-8.2)
[2025-06-07 01:49] LABS: Acetaminophen < 10 ug/mL (10-30); Salicylate < 1.0 mg/dL (2-20)
--- NOTE | 2025-06-07 01:52 | ADMGEN ---
This patient, Adelita Arteaga, was admitted to 3 Med Surg Room 331-01. Patient/family oriented to hospital policies and general routines including ID bracelet, bed and alarms, visiting hours, pain management, procedures, bathroom and other care routines, personal items, smoking policy, room service/diet, and visiting hours. Information on how to activate the Rapid Response Team has been discussed. Patient/Family are encouraged to report perceived risks to care and to ask questions if they do not understand what they are told or what they should do.
[2025-06-07 02:00] LABS: Creatine Kinase 2373 U/L (30-135)
[2025-06-07 02:14] LABS: Procalcitonin 0.4 ng/mL
[2025-06-07] MEDS: ASPIRIN 325 MG TABLET PO (02:15)
[2025-06-07 02:39] LABS: Thyroid Stimulating Hormone Reflex 0.627 uIU/mL (0.465-4.68)
[2025-06-07 03:58] LABS: Alveolar/Arterial O2 Gradient 35.3 mmHg; Carboxyhemoglobin 0.5 % THb (0-2.0); Fractional Inspired Oxygen 21 %; HCO3 ABG 20.3 mEq/l (22.0-26.0); Methemoglobin ABG 0.2 %THb (0-1.5); Oxygen Content ABG 17.6 %vol (16.0-22.0); Oxygen Saturation ABG 96.2 % (95.0-100.0); PCO2 ABG 30.2 mmHg (35.0-45.0); PO2 ABG 78.3 mmHg (80.0-100.0); PO2 FiO2 Ratio Arterial Blood 3.73 %; Reduced Hemoglobin 4.1 %THb (0-5.0)
[2025-06-07 04:59] LABS: Modified Allen's Test Pass; Site Drawn RIGHT RADIAL
[2025-06-07] MEDS: POTASSIUM CHLORIDE 20 MEQ ER TABLET PO (06:02)
[2025-06-07 07:03] LABS: Cannabinoid Screen Urine Negative (Negative)
[2025-06-07] MEDS: INDAPAMIDE 1.25 MG TABLET PO (09:07)
[2025-06-07] MEDS: BRIMONIDINE TARTRATE 0.2% OP SOLN 5 ML BTL 1 DROP EACH EYE ×2 (09:07→20:25)
[2025-06-07] MEDS: TIMOLOL MALEATE 0.5% OP SOLN 5 ML BOTTLE 1 DROP EACH EYE ×2 (09:07→20:24)
[2025-06-07] MEDS: POTASSIUM CHLORIDE 10 MEQ ER TABLET PO (09:09)
[2025-06-07] MEDS: SODIUM CHLORIDE 0.9% IV 1,000 ML 100 ML IV CONT ×2 (10:00→20:53)
--- NOTE | 2025-06-07 13:32 | WPDNEURCNPN ---
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 Change in the daily habits rule out the possibility of subtle ongoing dementia. 2. Rule out the possibility of intracranial pathology with MRI. 3. Rule out the possibility of unwitnessed seizure though it is unlikely to be abnormal but routine EEG will be obtained to rule out the possibility of ongoing encephalopathy. 4. Obtain the MRI of the brain, she had an MRI of the brain in November of 2024 which had documented moderate to severe chronic microvascular ischemic changes with moderate to severe generalized atrophy. Further recommendation will be made accordingly.. Consult date: 06/07/25 HPI: Adelita Arteaga is a 80 year old femaleAdmitted to the hospital through the emergency room with the complaints of change in the mental status as per the EMS, patient was found by neighbor stuck on her toilet unable to get up. There was also concern for change in the mental status. The patient reported that she was just feeling weak. Patient was unable to recall exactly what has happened on the day of admission. There was no history of any other associated generalized symptomatology and patient was not complaining of any other specific symptoms. She is reportedly allergic to tetracycline. On initial exam in the emergency room she was found to have no focal neurological deficit but she was oriented x2. 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 EKG was normal with no atrial fibrillation. Review of Systems Review of Systems: All systems reviewed & are unremarkable except as noted in HPI and below PMFSH Social History Social History Smoking status: Never smoker Second hand tobacco smoke exposure: No Alcohol intake: current Drinks per week: 1 Substance use: never Spiritual care concerns: No Meds Home Medications and Allergies Home Medications ?Medication ?Instructions ?Recorded ?Confirmed ?Type acetaminophen 500 mg capsule 1,000 mg (2 x 500 mg) PO Q6H PRN 11/11/24 06/07/25 Rx pain #30 caps ibuprofen 600 mg tablet 600 mg PO TID PRN pain #30 tabs 11/11/24 06/07/25 Rx amlodipine 10 mg tablet 10 mg PO DAILY 06/07/25 06/07/25 History brimonidine 0.2 % eye drops 1 drp EACH EYE .Q12 06/07/25 06/07/25 History celecoxib 200 mg capsule 200 mg PO DAILY 06/07/25 06/07/25 History indapamide 1.25 mg tablet 1.25 mg PO DAILY 06/07/25 06/07/25 History potassium chloride 10 mEq 30 meq PO BID 06/07/25 06/07/25 History tablet,extended release simvastatin 10 mg tablet 10 mg PO HS 06/07/25 06/07/25 History timolol maleate 0.5 % eye drops 1 drp EACH EYE Q12H 06/07/25 06/07/25 History Allergies Allergy/AdvReac Type Severity Reaction Status Date / Time Tetracyclines Allergy Intermediate Hives Verified 06/07/25 01:52 Vital Signs Vital Signs - 24 hr 06/06/25 17:29 06/06/25 17:45 06/06/25 17:46 Temperature 36.6 C Pulse Rate 109 H 101 H 99 Respiratory Rate 19 12 19 Blood Pressure 138/79 138/83 Pulse Oximetry 98 98 96 Oxygen Delivery Room Air 06/06/25 17:50 06/06/25 18:00 06/06/25 18:00 Temperature Pulse Rate 108 H 104 H Respiratory Rate 15 Blood Pressure Pulse Oximetry 100 Oxygen Delivery Room Air 06/06/25 18:01 06/06/25 18:15 06/06/25 18:16 Temperature Pulse Rate 103 H 95 98 Respiratory Rate 20 17 22 H Blood Pressure 174/101 H 152/86 H Pulse Oximetry 98 100 100 Oxygen Delivery 06/06/25 18:30 06/06/25 18:31 06/06/25 18:45 Temperature Pulse Rate 81 89 98 Respiratory Rate 17 20 17 Blood Pressure 162/81 H Pulse Oximetry 95 Oxygen Delivery 06/06/25 18:46 06/06/25 19:00 06/06/25 19:03 Temperature Pulse Rate 100 98 96 Respiratory Rate 20 19 21 H Blood Pressure 146/67 H Pulse Oximetry 98 100 94 Oxygen Delivery 06/06/25 19:08 06/06/25 19:15 06/06/25 19:16 Temperature Pulse Rate 94 92 87 Respiratory Rate 20 15 14 Blood Pressure 146/87 H 146/81 H Pulse Oximetry 100 100 100 Oxygen Delivery 06/06/25 19:41 06/06/25 19:46 06/06/25 20:01 Temperature Pulse Rate 90 87 89 Respiratory Rate 20 16 19 Blood Pressure 141/80 H 145/83 H 153/85 H Pulse Oximetry 100 100 100 Oxygen Delivery 06/06/25 20:16 06/06/25 20:46 06/06/25 21:45 Temperature Pulse Rate 87 82 86 Respiratory Rate 18 18 16 Blood Pressure 135/79 140/80 Pulse Oximetry 98 99 98 Oxygen Delivery 06/06/25 22:00 06/06/25 22:15 06/06/25 22:45 Temperature Pulse Rate 87 83 70 Respiratory Rate 19 18 15 Blood Pressure Pulse Oximetry 98 96 98 Oxygen Delivery 06/06/25 23:00 06/06/25 23:15 06/06/25 23:23 Temperature Pulse Rate 73 75 64 Respiratory Rate 16 17 18 Blood Pressure 142/80 H Pulse Oximetry 97 97 98 Oxygen Delivery 06/07/25 00:00 06/07/25 00:15 06/07/25 04:00 Temperature 36.2 C L Pulse Rate 71 88 84 Respiratory Rate 16 Blood Pressure 118/55 L Pulse Oximetry 100 97 Oxygen Delivery 06/07/25 05:05 06/07/25 08:00 06/07/25 08:00 Temperature 36.1 C L 36.5 C Pulse Rate 82 83 89 Respiratory Rate 18 18 Blood Pressure 118/57 L 126/60 Pulse Oximetry 96 98 Oxygen Delivery 06/07/25 09:42 Temperature Pulse Rate Respiratory Rate Blood Pressure Pulse Oximetry 99 Oxygen Delivery Room Air Exam Narrative: Examination today revealed her to be awake alert cooperative, laying in bed in supine position very receptive to the examination, she was herself able to tell me that the neighbors found her not walking will usually she walks her dog more frequently, her head was normocephalic with no cranial bruits, neck was supple with no cervical bruit no thyromegaly no lymphadenopathy, heart was regular with no murmur, lungs were clear to auscultation with no rhonchi or crepitations, abdomen is soft nontender with normal bowel sounds, neurologically she was awake alert she knew that she was in the hospital, hi and speech was not dysphasic not dysarthric not dysphonic, pupils were round regular reacting to light equally, feels the vision were full in all 4 quadrants, extraocular movements were full with no nystagmus, facial sensation was intact, face was symmetrical at rest as well as on smile, tongue was in the oral cavity, there were no fasciculation of the tongue, and motor examination revealed her to have normal strength and tone with no evidence of drift against gravity with eyes closure, there were no abnormal movements noted during this exam, deep tendon reflexes were symmetrical, and plantar responses were downgoing, Results Labs 06/07/25 01:26 06/07/25 01:26 Labs: Short CBC 06/06/25 06/07/25 Range/Units 17:46 01:26 WBC 13.7 H 10.5 H (4.5-10.0) K/mm3 Hgb 15.6 H 12.2 D (12.0-15.0) g/dL Hct 45.3 36.7 L (37.0-47.0) % Plt Count 256 201 (150-375) k/mm3 BMP 06/06/25 06/07/25 17:46 01:26 Sodium 137 136 L Potassium 3.8 3.2 L Chloride 101 109 H Carbon Dioxide 22 20 L BUN 36 H 29 H Creatinine 1.67 H 1.04 H Glucose 143 H 111 H Calcium 8.9 7.3 L Cardiac Enzymes 06/06/25 06/06/25 06/07/25 Range/Units 17:46 17:46 01:26 Total Creatine Kinase 3501 H Cancelled 2373 H (30-135) U/L Liver Function 06/06/25 06/07/25 Range/Units 17:46 01:26 Total Bilirubin 1.3 0.9 (0.2-1.3) mg/dL AST 120 H 83 H (14-36) U/L ALT 49 H 34 (6-35) U/L Alkaline Phosphatase 63 55 (38-126) U/L Albumin 4.8 3.3 L (3.5-5.1) g/dL Urine 06/06/25 Range/Units 18:56 Urine Color Dark yellow (Yellow) Urine Appearance Cloudy H (Clear) Urine pH 5.0 (5.0-9.0) Ur Specific [place] 1.023 (1.001-1.035) Urine Protein 2+ H (Negative) mg/dL Urine Glucose (UA) Negative (Negative) mg/dL
--- NOTE | 2025-06-07 14:52 | PM.IMPN ---
Progress Note: A&P Assessment and Plan (1) ASHWINI (acute kidney injury): Code(s): N17.9 - Acute kidney failure, unspecified Status: Acute Assessment and Plan: on admission BUN 36, creatinine 1.67 s/p fluid resuscitation improving, BUN 29, creatinine 1.04 today continue IV fluids AM labs (2) Rhabdomyolysis: Qualifiers: Rhabdomyolysis type: non-traumatic Qualified Code(s): M62.82 - Rhabdomyolysis Code(s): M62.82 - Rhabdomyolysis Status: Acute Assessment and Plan: due to prolonged time sitting on toilet on admission CK was 3501 IV fluids, continue today CK 2373 trend CK level daily (3) Encephalopathy: Qualifiers: Encephalopathy type: unspecified encephalopathy Qualified Code(s): G93.40 - Encephalopathy, unspecified Code(s): G93.40 - Encephalopathy, unspecified Status: Acute Assessment and Plan: on admission patient was oriented x 1 and nodding off during exam today patient is alert and oriented x 3-4, but does not remember how she ended up on the toilet or anything that happened until some time after she was admitted to the medical unit. 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 Patient lying in bed, in no acute distress. Patient is alert and oriented x 3. Patient is aware of why she is in the hospital, she just reports she cannot remember when or how she got into the bathroom and anything up until after sometime she was admitted onto the medical unit. Patient denies acute pain. Patient continues on IV fluids for rhabdo. Patient was seen by neurology and will have an MRI of the brain and an EEG completed. Patient will need PT/OT evaluation. Review of Systems Review of Systems: All systems reviewed & are unremarkable except as noted in HPI and below (Subjective) Exam Const: General: comfortable and no acute distress HENMT: Face/Nose/Sinus: Normal nares present Mouth: Yes moist mucous membranes Eyes: General: appearance normal, both eyes and all related structures Sclera: sclerae normal Neck: Neck: supple Resp: Effort & Inspection: normal respiratory effort Auscultation: clear to auscultation bilaterally Cardio: Rate: regular rate Rhythm: regular rhythm Heart sounds: no gallops and no murmurs GI: Inspection: non-distended GI Palp: Yes Soft to palpation Auscultation: normal bowel sounds Skin: General skin exam: normal color and no rashes or lesions noted Neuro: Cranial nerves: Yes Equal, round and reactive pupils present Speech: normal speech Motor exam (neuro): 5/5 motor strength present throughout Sensory Exam: normal sensation Other: alert and oriented x 3-4, patient does not remember the events at home that led to her admission or anything until she was admitted on the medical unit Extrem: General: no edema Psych: Affect: normal affect Objective Data Vital Signs Vital Signs: Vital Signs - 24 hr 06/06/25 17:29 06/06/25 17:45 06/06/25 17:46 Temperature 97.9 F Pulse Rate 109 H 101 H 99 Respiratory Rate 19 12 19 Blood Pressure 138/79 138/83 Pulse Oximetry 98 98 96 Oxygen Delivery Room Air 06/06/25 17:50 06/06/25 18:00 06/06/25 18:00 Temperature Pulse Rate 108 H 104 H Respiratory Rate 15 Blood Pressure Pulse Oximetry 100 Oxygen Delivery Room Air 06/06/25 18:01 06/06/25 18:15 06/06/25 18:16 Temperature Pulse Rate 103 H 95 98 Respiratory Rate 20 17 22 H Blood Pressure 174/101 H 152/86 H Pulse Oximetry 98 100 100 Oxygen Delivery 06/06/25 18:30 06/06/25 18:31 06/06/25 18:45 Temperature Pulse Rate 81 89 98 Respiratory Rate 17 20 17 Blood Pressure 162/81 H Pulse Oximetry 95 Oxygen Delivery 06/06/25 18:46 06/06/25 19:00 06/06/25 19:03 Temperature Pulse Rate 100 98 96 Respiratory Rate 20 19 21 H Blood Pressure 146/67 H Pulse Oximetry 98 100 94 Oxygen Delivery 06/06/25 19:08 06/06/25 19:15 06/06/25 19:16 Temperature Pulse Rate 94 92 87 Respiratory Rate 20 15 14 Blood Pressure 146/87 H 146/81 H Pulse Oximetry 100 100 100 Oxygen Delivery 06/06/25 19:41 06/06/25 19:46 06/06/25 20:01 Temperature Pulse Rate 90 87 89 Respiratory Rate 20 16 19 Blood Pressure 141/80 H 145/83 H 153/85 H Pulse Oximetry 100 100 100 Oxygen Delivery 06/06/25 20:16 06/06/25 20:46 06/06/25 21:45 Temperature Pulse Rate 87 82 86 Respiratory Rate 18 18 16 Blood Pressure 135/79 140/80 Pulse Oximetry 98 99 98 Oxygen Delivery 06/06/25 22:00 06/06/25 22:15 06/06/25 22:45 Temperature Pulse Rate 87 83 70 Respiratory Rate 19 18 15 Blood Pressure Pulse Oximetry 98 96 98 Oxygen Delivery 06/06/25 23:00 06/06/25 23:15 06/06/25 23:23 Temperature Pulse Rate 73 75 64 Respiratory Rate 16 17 18 Blood Pressure 142/80 H Pulse Oximetry 97 97 98 Oxygen Delivery 06/07/25 00:00 06/07/25 00:15 06/07/25 04:00 Temperature 97.1 F L Pulse Rate 71 88 84 Respiratory Rate 16 Blood Pressure 118/55 L Pulse Oximetry 100 97 Oxygen Delivery 06/07/25 05:05 06/07/25 08:00 06/07/25 08:00 Temperature 97.0 F L 97.7 F Pulse Rate 82 83 89 Respiratory Rate 18 18 Blood Pressure 118/57 L 126/60 Pulse Oximetry 96 98 Oxygen Delivery 06/07/25 09:42 06/07/25 12:00 Temperature 97.7 F Pulse Rate 77 Respiratory Rate 19 Blood Pressure 145/69 H Pulse Oximetry 99 96 Oxygen Delivery Room Air Intake/Output Intake/Output: Intake & Output 06/04/25 06/05/25 06/06/25 06/07/25 23:59 22:59 23:59 23:59 Intake Total 3000 1147 Balance 3000 1147 Meds/Results Medications: Active Medications Generic Name Dose Route Start Last Admin Trade Name Freq PRN Reason Stop Dose Admin Brimonidine Tartrate 1 drop 06/07/25 09:00 06/07/25 09:07 Brimonidine Tartrate 0.2% Op Soln 5 Ml Btl EACH EYE 1 drop Q12HR SHAZIA Administration Sodium Chloride 1,000 mls @ 100 mls/hr 06/07/25 07:45 Normal Saline Iv IV CONT .Q10H SHAZIA Indapamide 1.25 mg 06/07/25 09:00 06/07/25 09:07 Indapamide 1.25 Mg Tablet PO 1.25 mg DAILY SHAZIA Administration Potassium Chloride 30 meq 06/07/25 17:00 Potassium Chloride 10 Meq Er Tablet PO BID SHAZIA Simvastatin 10 mg 06/07/25 21:00 Simvastatin 10 Mg Tablet PO HS SHAZIA Timolol Maleate 1 drop 06/07/25 09:00 06/07/25 09:07 Timolol Maleate 0.5% Op Soln 5 Ml Bottle EACH EYE 1 drop Q12HR SHAZIA Administration Radiology Results: ITS Impressions Head CT 06/06/25 19:55 IMPRESSION: 1. No acute intracranial abnormality. 2: Moderate sinus disease, possibly chronic. Chest X-Ray 06/06/25 20:07 Impression: 1: No acute cardiopulmonary disease. 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 Otherwise no hemodynamically significant stenosis is noted of the cervical and intracranial arterial vasculature. Labs Labs: Laboratory Results - last 24 hr 06/06/25 06/06/25 06/06/25 17:46 17:46 18:56 WBC 13.7 H RBC 4.85 Hgb 15.6 H Hct 45.3 MCV 93.4 MCH 32.2 MCHC 34.4 RDW 13.0 Plt Count 256 MPV 9.8 Immature Gran % (Auto) Not Reportable Neut % (Auto) Not Reportable Lymph % (Auto) Not Reportable [place] % (Auto) Not Reportable Eos % (Auto) Not Reportable Baso % (Auto) Not Reportable Lymph # (Auto) Not Reportable [place] # (Auto) Not Reportable Eos # (Auto) Not Reportable Baso # (Auto) Not Reportable Abs Immat Gran (auto) Not Reportable Absolute Neuts (auto) Not Reportable Absolute Nucleated RBC Not Reportable Total Counted 100 Neutrophils % (Manual) 87 H Band Neutrophils % 3 Lymphocytes % (Manual) 4.0 L Monocytes % (Manual) 6 Nucleated RBC % Not Reportable Abs Neuts (Manual) 12.33 H Abs Lymphs (Manual) 0.54 L Abs Monocytes (Manual) 0.82 Platelet Estimate Adequate Clumped Platelets Present Schistocytes None seen Puncture Site ABG pH ABG pCO2 ABG pO2 ABG PO2/FiO2 Ratio ABG HCO3 ABG O2 Saturation ABG O2 Content ABG Base Excess A-a Gradient Oxyhemoglobin Carboxyhemoglobin Methemoglobin Reduced Hemoglobin Total Hemoglobin O2 Delivery Device O2 Liters/Min FiO2 Sodium 137 Potassium 3.8 Chloride 101 Carbon Dioxide 22 Anion Gap 14 H BUN 36 H Creatinine 1.67 H Estim Creat Clear Calc 23 Estimated GFR 30 L Glucose 143 H Lactic Acid 3.0 H Calcium 8.9 Phosphorus Magnesium Total Bilirubin 1.3 AST 120 H ALT 49 H Alkaline Phosphatase 63 Ammonia Total Creatine Kinase 3501 H Cancelled Total Protein 8.5 H Albumin 4.8 Vitamin D 25-Hydroxy Procalcitonin TSH (Reflex) Urine Color Dark yellow Urine Appearance Cloudy H Urine pH 5.0 Ur Specific [place] 1.023 Urine Protein 2+ H Urine Glucose (UA) Negative Urine Ketones Trace H Ur Blood (Man) 2+ H Urine Nitrate Negative Urine Bilirubin 1+ H Urine Urobilinogen 1.0 Leukocyte Esterase Rfl Negative Urine RBC 11-20 H Urine WBC 0-5 Ur Squamous Epith Cells Few Urine Bacteria None seen Urine Casts >20 Hyaline Casts Present Salicylates Urine Opiates Screen Urine Methadone Screen Acetaminophen Ur Barbiturates Screen Ur Phencyclidine Scrn Ur Amphetamine Screen U Benzodiazepines Scrn Urine Cocaine Screen U Cannabinoids Screen Influenza A (RT-PCR) Influenza B (RT-PCR) RSV (RT-PCR) SARS-CoV-2 RNA (RT-PCR) 06/06/25 06/06/25 06/07/25 19:27 20:57 01:26 WBC 10.5 H RBC 3.87 L Hgb 12.2 D Hct 36.7 L MCV 94.8 MCH 31.5 MCHC 33.2 RDW 13.2 Plt Count 201 MPV 9.7 Immature Gran % (Auto) 0.4 Neut % (Auto) 81.1 H Lymph % (Auto) 8.2 L [place] % (Auto) 10.1 H Eos % (Auto) 0.0 Baso % (Auto) 0.2 Lymph # (Auto) 0.86 L [place] # (Auto) 1.1 H Eos # (Auto) 0.0 Baso # (Auto) 0.0 Abs Immat Gran (auto) 0.04 H Absolute Neuts (auto) 8.5 H Absolute Nucleated RBC 0.000 Total Counted Neutrophils % (Manual) Band Neutrophils % Lymphocytes % (Manual) Monocytes % (Manual) Nucleated RBC % 0.0 Abs Neuts (Manual) Abs Lymphs (Manual) Abs Monocytes (Manual) Platelet Estimate Clumped Platelets Schistocytes Puncture Site ABG pH ABG pCO2 ABG pO2 ABG PO2/FiO2 Ratio ABG HCO3 ABG O2 Saturation ABG O2 Content ABG Base Excess A-a Gradient Oxyhemoglobin Carboxyhemoglobin Methemoglobin Reduced Hemoglobin Total Hemoglobin O2 Delivery Device O2 Liters/Min FiO2 Sodium 136 L Potassium 3.2 L Chloride 109 H Carbon Dioxide 20 L Anion Gap 7 BUN 29 H Creatinine 1.04 H Estim Creat Clear Calc 36 Estimated GFR 51 L Glucose 111 H Lactic Acid 3.0 H 1.5 Calcium 7.3 L Phosphorus 4.1 Magnesium 1.8 Total Bilirubin 0.9 AST 83 H ALT 34 Alkaline Phosphatase 55 Ammonia < 9 L Total Creatine Kinase 2373 H Total Protein 6.1 L Albumin 3.3 L Vitamin D 25-Hydroxy 44.1 Procalcitonin 0.4 TSH (Reflex) 0.627 Urine Color Urine Appearance Urine pH Ur Specific [place] Urine Protein Urine Glucose (UA) Urine Ketones Ur Blood (Man) Urine Nitrate Urine Bilirubin Urine Urobilinogen Leukocyte Esterase Rfl Urine RBC Urine WBC Ur Squamous Epith Cells Urine Bacteria Urine Casts Hyaline Casts Salicylates < 1.0 L Urine Opiates Screen Urine Methadone Screen Acetaminophen < 10 L Ur Barbiturates Screen Ur Phencyclidine Scrn Ur Amphetamine Screen U Benzodiazepines Scrn Urine Cocaine Screen U Cannabinoids Screen Influenza A (RT-PCR) Negative Influenza B (RT-PCR) Negative RSV (RT-PCR) Negative SARS-CoV-2 RNA (RT-PCR) Negative 06/07/25 06/07/25 01:55 06:40 WBC RBC Hgb Hct MCV MCH MCHC RDW Plt Count MPV Immature Gran % (Auto) Neut % (Auto) Lymph % (Auto) [place] % (Auto) Eos % (Auto) Baso % (Auto) Lymph # (Auto) [place] # (Auto) Eos # (Auto) Baso # (Auto) Abs Immat Gran (auto) Absolute Neuts (auto) Absolute Nucleated RBC Total Counted Neutrophils % (Manual) Band Neutrophils % Lymphocytes % (Manual) Monocytes % (Manual) Nucleated RBC % Abs Neuts (Manual) Abs Lymphs (Manual) Abs Monocytes (Manual) Platelet Estimate Clumped Platelets Schistocytes Puncture Site Right radial ABG pH 7.445 ABG pCO2 30.2 L ABG pO2 78.3 L ABG PO2/FiO2 Ratio 3.73 ABG HCO3 20.3 L ABG O2 Saturation 96.2 ABG O2 Content 17.6 ABG Base Excess -2.7 A-a Gradient 35.3 Oxyhemoglobin 95.2 Carboxyhemoglobin 0.5 Methemoglobin 0.2 Reduced Hemoglobin 4.1 Total Hemoglobin 13.1 O2 Delivery Device Not Reportable O2 Liters/Min Not Reportable FiO2 21 Sodium Potassium Chloride Carbon Dioxide Anion Gap BUN Creatinine Estim Creat Clear Calc Estimated GFR Glucose Lactic Acid Calcium Phosphorus Magnesium Total Bilirubin AST ALT Alkaline Phosphatase Ammonia Total Creatine Kinase Total Protein Albumin Vitamin D 25-Hydroxy Procalcitonin TSH (Reflex) Urine Color Urine Appearance Urine pH Ur Specific [place] Urine Protein Urine Glucose (UA) Urine Ketones Ur Blood (Man) Urine Nitrate Urine Bilirubin Urine Urobilinogen Leukocyte Esterase Rfl Urine RBC Urine WBC Ur Squamous Epith Cells Urine Bacteria Urine Casts Hyaline Casts Salicylates Urine Opiates Screen Negative Urine Methadone Screen Negative Acetaminophen Ur Barbiturates Screen Negative Ur Phencyclidine Scrn Negative Ur Amphetamine Screen Negative U Benzodiazepines Scrn Negative Urine Cocaine Screen Negative U Cannabinoids Screen Negative Influenza A (RT-PCR) Influenza B (RT-PCR) RSV (RT-PCR) SARS-CoV-2 RNA (RT-PCR) Quality VTE Prophylaxis VTE prophylaxis: mechanical ordered
[2025-06-07] MEDS: POTASSIUM CHLORIDE 10 MEQ ER TABLET 30 MEQ PO (16:43)
[2025-06-07] MEDS: SIMVASTATIN 10 MG TABLET PO (20:24)
[2025-06-08] VITALS (8 sets, daily range): BP systolic 111–147; BP diastolic 55–73; PULSE 64–95; RESP 17–20; TEMP 36.4–38.3; O2SAT 94–100
[2025-06-08] MEDS: ACETAMINOPHEN 325 MG TABLET 650 MG PO ×3 (05:12→20:51)
[2025-06-08 06:20] LABS: Hematocrit 32.8 % (37.0-47.0); Hemoglobin 10.9 g/dL (12.0-15.0); Immature Granulocyte Percent A 0.6 % (0-0.5); Lymphocytes Absolute Auto 0.59 K/mm3 (0.9-3.2); Mean Corpuscular HGB Conc 33.2 g/dl (32-36); Mean Corpuscular Hemoglobin 31.7 pg (26-34); Mean Corpuscular Volume 95.3 fl (80-100); Nucleated Red Blood Cells Absolute Auto 0.000 K/mm3 (0.0-0.012); Nucleated Red Blood Cells Perc 0.0 % (0.0-0.2); Platelet Count Result 158 k/mm3 (150-375); Red Blood Count 3.44 M/mm3 (4.2-5.4); White Blood Count 8.3 K/mm3 (4.5-10.0)
[2025-06-08 06:46] LABS: Alanine Aminotransferase 33 U/L (6-35); Albumin Level 3.0 g/dL (3.5-5.1); Alkaline Phosphatase 53 U/L (38-126); Anion Gap 6 mmol/L (4-12); Aspartate Amino Transferase 58 U/L (14-36); Bilirubin,Total 1.1 mg/dL (0.2-1.3); Blood Urea Nitrogen 16 mg/dL (7-17); Calcium 6.9 mg/dL (8.4-10.2); Carbon Dioxide 20 mmol/L (22-30); Chloride 109 mmol/L (98-107); Creatine Kinase 1133 U/L (30-135); Estimated CRCL calculation 54 ml/min; Estimated Glomerular Filt Rate > 60; Glucose 116 mg/dL (65-110); Potassium 2.9 mmol/L (3.4-5.0); Sodium 135 mmol/L (137-145); Total Protein 5.7 g/dL (6.3-8.2)
[2025-06-08] MEDS: TIMOLOL MALEATE 0.5% OP SOLN 5 ML BOTTLE 1 DROP EACH EYE ×2 (09:19→20:52)
[2025-06-08] MEDS: INDAPAMIDE 1.25 MG TABLET PO (09:19)
[2025-06-08] MEDS: BRIMONIDINE TARTRATE 0.2% OP SOLN 5 ML BTL 1 DROP EACH EYE ×2 (09:19→20:52)
[2025-06-08] MEDS: POTASSIUM CHLORIDE INJ 40 MEQ in SODIUM CHLORIDE 0.9% IV 500 ML 130 MEQ IVPB (09:22)
[2025-06-08] MEDS: POTASSIUM CHLORIDE 20 MEQ PACKET (FOR LIQUID) 40 MEQ PO (09:32)
[2025-06-08 15:36] LABS: Anion Gap 6 mmol/L (4-12); Blood Urea Nitrogen 16 mg/dL (7-17); Calcium 7.3 mg/dL (8.4-10.2); Carbon Dioxide 21 mmol/L (22-30); Chloride 109 mmol/L (98-107); Estimated CRCL calculation 48 ml/min; Estimated Glomerular Filt Rate > 60; Glucose 117 mg/dL (65-110); Magnesium 1.7 mg/dL (1.6-2.3); Potassium 3.6 mmol/L (3.4-5.0); Sodium 136 mmol/L (137-145)
--- NOTE | 2025-06-08 16:37 | P.PNIM_ITS ---
Progress Note: A&P Assessment and Plan (1) ASHWINI (acute kidney injury): Code(s): N17.9 - Acute kidney failure, unspecified Status: Acute Assessment and Plan: on admission BUN 36, creatinine 1.67 s/p fluid resuscitation improving, BUN 29, creatinine 1.04 today continue IV fluids AM labs (2) Rhabdomyolysis: Qualifiers: Rhabdomyolysis type: non-traumatic Qualified Code(s): M62.82 - Rhabdomyolysis Code(s): M62.82 - Rhabdomyolysis Status: Acute Assessment and Plan: due to prolonged time sitting on toilet on admission CK was 3501 IV fluids, continue today CK 2373 trend CK level daily (3) Encephalopathy: Qualifiers: Encephalopathy type: unspecified encephalopathy Qualified Code(s): G93.40 - Encephalopathy, unspecified Code(s): G93.40 - Encephalopathy, unspecified Status: Acute Assessment and Plan: on admission patient was oriented x 1 and nodding off during exam today patient is alert and oriented x 3-4, but does not remember how she ended up on the toilet or anything that happened until some time after she was admitted to the medical unit. 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 patient was also found to have rhabdomyolysis and upon arrival her CK were 2373 and today trending down to 1133 Subjective Date/time seen: 06/08/25 16:37 Interval history: Patient seen for a follow up visit. Patient lying in bed, in no acute distress. Patient is alert and oriented x 3. Patient is aware of why she is in the hospital, she just reports she cannot remember when or how she got into the bathroom and anything up until after sometime she was admitted onto the medical unit. Patient denies acute pain. Patient continues on IV fluids for rhabdo. Patient was seen by neurology and will have an MRI of the brain and an EEG completed. Patient will need PT/OT evaluation. patient stats feel about the same, her MRI of brain did not show any acute injury, and does complaints of both knee pain and swelling, will do x-ray of the knee, suspect patient OA, will consult an orthopedic and further recommendation to follow, her family is present and gave updates. patient was also found to have rhabdomyolysis and upon arrival her CK were 2373 and today trending down to 1133 Review of Systems Review of Systems: All systems reviewed & are unremarkable except as noted in HPI and below (Subjective) Exam Narrative: Patient is comfortable, NAD HEENT: eyes are clear and none icteric LUNGS:CTA HEART: RR S1S2 ABD: BS+, Soft and nontender Lower extremities: no edema MS: B/L knees are swollen and tender, no erythema, warmth or sign of injury SKIN: nonjaundiced Neuro: grossly intact. Objective Data Vital Signs Vital Signs: Vital Signs - 24 hr 06/07/25 20:00 06/07/25 20:00 06/07/25 20:00 Temperature 37.2 C Pulse Rate 86 82 Respiratory Rate 18 Blood Pressure 142/69 H Pulse Oximetry 98 96 Oxygen Delivery Nasal Cannula Oxygen Flow Rate 3 06/08/25 00:00 06/08/25 00:00 06/08/25 04:00 Temperature 37.1 C Pulse Rate 64 73 79 Respiratory Rate 19 Blood Pressure 146/73 H Pulse Oximetry 95 Oxygen Delivery Oxygen Flow Rate 06/08/25 04:00 06/08/25 05:12 06/08/25 06:42 Temperature 38.3 C H 38.3 C H 36.9 C Pulse Rate 77 Respiratory Rate 18 Blood Pressure 133/67 Pulse Oximetry 94 Oxygen Delivery Oxygen Flow Rate 06/08/25 08:00 06/08/25 08:00 06/08/25 09:20 Temperature 36.5 C Pulse Rate 81 79 Respiratory Rate 17 Blood Pressure 111/55 L Pulse Oximetry 97 Oxygen Delivery Room Air Oxygen Flow Rate 06/08/25 12:00 06/08/25 12:00 06/08/25 14:00 Temperature 37.7 C H Pulse Rate 78 81 Respiratory Rate 20 Blood Pressure 145/68 H Pulse Oximetry 99 Oxygen Delivery Room Air Oxygen Flow Rate 06/08/25 15:25 Temperature Pulse Rate Respiratory Rate Blood Pressure Pulse Oximetry Oxygen Delivery Room Air Oxygen Flow Rate Intake/Output Intake/Output: Intake & Output 06/05/25 06/06/25 06/07/25 06/08/25 22:59 23:59 23:59 23:59 Intake Total 3000 2597 888 Output Total 700 200 Balance 3000 1897 688 Meds/Results Medications: Active Medications Generic Name Dose Route Start Last Admin Trade Name Freq PRN Reason Stop Dose Admin Acetaminophen 650 mg 06/08/25 04:53 06/08/25 12:15 Acetaminophen 325 Mg Tablet PO 650 mg Q4H PRN Administration Fever Brimonidine Tartrate 1 drop 06/07/25 09:00 06/08/25 09:19 Brimonidine Tartrate 0.2% Op Soln 5 Ml Btl EACH EYE 1 drop Q12HR SHAZIA Administration Sodium Chloride 1,000 mls @ 100 mls/hr 06/07/25 07:45 06/07/25 20:53 Normal Saline Iv IV CONT 100 mls/hr .Q10H SHAZIA Administration Indapamide 1.25 mg 06/07/25 09:00 06/08/25 09:19 Indapamide 1.25 Mg Tablet PO 1.25 mg DAILY SHAZIA Administration Potassium Chloride 30 meq 06/07/25 17:00 06/08/25 09:31 Potassium Chloride 10 Meq Er Tablet PO Not Given BID SHAZIA Simvastatin 10 mg 06/07/25 21:00 06/07/25 20:24 Simvastatin 10 Mg Tablet PO 10 mg HS SHAZIA Administration Timolol Maleate 1 drop 06/07/25 09:00 06/08/25 09:19 Timolol Maleate 0.5% Op Soln 5 Ml Bottle EACH EYE 1 drop Q12HR SHAZIA Administration Radiology Results: ITS Impressions Head CT 06/06/25 19:55 IMPRESSION: 1. No acute intracranial abnormality. 2: Moderate sinus disease, possibly chronic. Chest X-Ray 06/06/25 20:07 Impression: 1: No acute cardiopulmonary disease. 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 Otherwise no hemodynamically significant stenosis is noted of the cervical and intracranial arterial vasculature. Brain MRI 06/08/25 15:08 IMPRESSION: 1. No acute intracranial process or abnormally enhancing brain lesions.. 2. Stable appearance of prominent chronic periventricular predominant white matter T2 hyperintensity consistent with chronic small vessel ischemic disease and multiple more focal small old lacunar infarcts in the bilateral cerebral periventricular white matter. 3. Unchanged symmetric enlargement of the third and left and right lateral ventricles which could be secondary to age-related central predominant diffuse cerebral volume loss or secondary to normal pressure hydrocephalus (NPH: clinical triad ataxia/gait disturbance, dementia, urinary incontinence). Knee X-Ray 06/08/25 15:42 Impression: No acute fracture or malalignment. Labs Labs: Laboratory Results - last 24 hr 06/08/25 06/08/25 05:58 14:28 WBC 8.3 RBC 3.44 L Hgb 10.9 L Hct 32.8 L MCV 95.3 MCH 31.7 MCHC 33.2 RDW 13.2 Plt Count 158 MPV 9.9 Immature Gran % (Auto) 0.6 H Neut % (Auto) 80.3 H Lymph % (Auto) 7.1 L [place] % (Auto) 11.5 H Eos % (Auto) 0.1 Baso % (Auto) 0.4 Lymph # (Auto) 0.59 L [place] # (Auto) 1.0 H Eos # (Auto) 0.0 Baso # (Auto) 0.0 Abs Immat Gran (auto) 0.05 H Absolute Neuts (auto) 6.7 Absolute Nucleated RBC 0.000 Nucleated RBC % 0.0 Sodium 135 L 136 L Potassium 2.9 L 3.6 Chloride 109 H 109 H Carbon Dioxide 20 L 21 L Anion Gap 6 6 BUN 16 D 16 Creatinine 0.67 L 0.76 Estim Creat Clear Calc 54 48 Estimated GFR > 60 > 60 Glucose 116 H 117 H Calcium 6.9 L 7.3 L Magnesium 1.7 Total Bilirubin 1.1 AST 58 H ALT 33 Alkaline Phosphatase 53 Total Creatine Kinase 1133 H Total Protein 5.7 L Albumin 3.0 L Quality VTE Prophylaxis VTE prophylaxis: mechanical ordered
--- NOTE | 2025-06-08 16:57 | PM.CNOR ---
Assessment and Plan Assessment and plan (1) Arthritis of knee, degenerative: Qualifiers: Laterality: bilateral Osteoarthritis type: primary Qualified Code(s): M17.0 - Bilateral primary osteoarthritis of knee Code(s): M17.9 - Osteoarthritis of knee, unspecified Status: Acute Assessment and Plan: New patient evaluation for chief complaint bilateral knee pain and swelling. History, physical exam and radiographs reviewed with the patient. Found after prolonged sitting position at home. Radiographs of the left knee show severe degenerative changes including severe degenerative patellofemoral arthritis with periarticular calcifications. Most likely stress response to prolonged knee flexed position which may have exacerbated pre-existing degenerative change. patient states the left knee has become more painful and swollen over the past 1-2 months. History of left knee medial meniscectomy many years ago in open fashion. Discussed the condition, nature, etiology and course of natural history with the patient. Treatment options including surgical and nonoperative treatment were reviewed. Risks and benefits of each as well as alternatives reviewed. The patient's questions were answered. Conservative treatment ice, compression and elevation. Recommend aspiration of left knee effusion and analysis of fluid. Possible cortisone versus other indicated treatment. Plan Discussed condition with the patient. The nonoperative and operative treatment options reviewed. Risks and benefits of Cortisone injection as well as alternatives were reviewed. All of the patient's questions were answered. The risks of injection were reviewed including but not limited to skin color changes, atrophy of the soft tissue, tendon or soft tissue rupture, joint degeneration, hyper inflammatory response, allergic reaction, continued pain or dysfunction. Specific risks of the procedure including deep infection, hypertension, elevated blood sugar, soft tissue rupture or recurrence of symptoms reviewed. No guarantees were offered. The patient understands the need for possible further treatment. Patient verbalizes understanding and wishes to proceed. Plan for left knee aspiration with lab testing of fluid. History of Present Illness HPI Consult date: 06/09/25 Requesting physician: Francia Saba MD Consult reason: joint pain ( Bilateral knees) Chief complaint: knee pain Narrative: 80-year-old woman admitted through the emergency room 2 days ago after syncopal episode on the toilet at home. No other injury noted. Found to have bilateral knee pain and swelling. Asked to see patient for evaluation and possible treatment. Review of Systems Constitutional: Constitutional: Denies fever(s) Eyes: Eyes: Denies blurry vision ENT: Reports Normal hearing present Cardiovascular: Cardiovascular: Denies chest pain and Denies dyspnea Respiratory: Respiratory: Denies dyspnea and Denies wheezing Gastrointestinal: Gastrointestinal: Denies abdominal pain Genitourinary: Genitourinary: Denies urinary urgency Musculoskeletal: Musculoskeletal: Reports as per HPI and Denies numbness Integumentary/Breasts: Skin/Breast: Denies changing lesions and Denies sores Neurologic: Reports Normal hearing present, Denies behavioral changes, Denies confusion, Denies numbness and Denies convulsions Psychiatric: Psychiatric: Denies behavioral changes, Denies confusion and Denies hallucinations Endocrine: Endocrine: Denies heat intolerance Hematologic/Lymphatic: Hematologic/Lymphatic: Denies easy bleeding Allergic/Immunologic: Allergic/Immunologic: Denies wheezing PMFSH Past Medical History Medical History (Updated 06/08/25 @ 16:59 by Vik Smith MD) Arthritis of knee, degenerative Social History Social History Smoking status: Never smoker Second hand tobacco smoke exposure: No Alcohol intake: current Drinks per week: 1 Substance use: never Spiritual care concerns: No Meds Home Medications and Allergies Home Medications ?Medication ?Instructions ?Recorded ?Confirmed ?Type acetaminophen 500 mg capsule 1,000 mg (2 x 500 mg) PO Q6H PRN 11/11/24 06/07/25 Rx pain #30 caps ibuprofen 600 mg tablet 600 mg PO TID PRN pain #30 tabs 11/11/24 06/07/25 Rx amlodipine 10 mg tablet 10 mg PO DAILY 06/07/25 06/07/25 History brimonidine 0.2 % eye drops 1 drp EACH EYE .Q12 06/07/25 06/07/25 History celecoxib 200 mg capsule 200 mg PO DAILY 06/07/25 06/07/25 History indapamide 1.25 mg tablet 1.25 mg PO DAILY 06/07/25 06/07/25 History potassium chloride 10 mEq 30 meq PO BID 06/07/25 06/07/25 History tablet,extended release simvastatin 10 mg tablet 10 mg PO HS 06/07/25 06/07/25 History timolol maleate 0.5 % eye drops 1 drp EACH EYE Q12H 06/07/25 06/07/25 History Allergies Allergy/AdvReac Type Severity Reaction Status Date / Time Tetracyclines Allergy Intermediate Hives Verified 06/07/25 01:52 Vital Signs Vital Signs - 24 hr 06/07/25 20:00 06/07/25 20:00 06/07/25 20:00 Temperature 99.0 F Pulse Rate 86 82 Respiratory Rate 18 Blood Pressure 142/69 H Pulse Oximetry 98 96 Oxygen Delivery Nasal Cannula Oxygen Flow Rate 3 06/08/25 00:00 06/08/25 00:00 06/08/25 04:00 Temperature 98.8 F Pulse Rate 64 73 79 Respiratory Rate 19 Blood Pressure 146/73 H Pulse Oximetry 95 Oxygen Delivery Oxygen Flow Rate 06/08/25 04:00 06/08/25 05:12 06/08/25 06:42 Temperature 101.0 F H 101 F H 98.5 F Pulse Rate 77 Respiratory Rate 18 Blood Pressure 133/67 Pulse Oximetry 94 Oxygen Delivery Oxygen Flow Rate 06/08/25 08:00 06/08/25 08:00 06/08/25 09:20 Temperature 97.7 F Pulse Rate 81 79 Respiratory Rate 17 Blood Pressure 111/55 L Pulse Oximetry 97 Oxygen Delivery Room Air Oxygen Flow Rate 06/08/25 12:00 06/08/25 12:00 06/08/25 14:00 Temperature 100 F H Pulse Rate 78 81 Respiratory Rate 20 Blood Pressure 145/68 H Pulse Oximetry 99 Oxygen Delivery Room Air Oxygen Flow Rate 06/08/25 15:25 Temperature Pulse Rate Respiratory Rate Blood Pressure Pulse Oximetry Oxygen Delivery Room Air Oxygen Flow Rate Exam Const: General: healthy appearing; No in distress Orientation/consciousness: oriented to person HENMT: Head: normal to inspection, normocephalic and atraumatic Neck: Neck: supple and nontender Resp: Effort & Inspection: normal respiratory effort and no audible wheezes Extrem: Right upper extremity: normal to inspection Left upper extremity: normal to inspection Right lower extremity: hip/thigh Details: normal ROM; no tenderness, knee Details: tenderness (anterior and medial joint line ) Location: of the medial joint line (moderate ) and of the pre-patellar area (moderate ), swelling (peripatellar and medial joint ), abnormal ROM (active range of motion -10 degrees extension, 110 degrees flexion) Details: pain with active ROM during Details: in extension and in flexion, knee ligament exam normal Details: anterior drawer test normal, posterior drawer test normal, valgus stress test normal and Karen?s test normal, knee ligament exam abnormal Details: varus stress test normal (painful medial ) and Ayleen's Test Details: positive medially and foot Details: normal capillary refill, toes with normal ROM, vascular exam Details: dorsalis pedis pulse present and motor-sensory exam Details: light-touch normal; no tenderness; no edema Left lower extremity: normal to inspection, normal capillary refill, knee Details: tenderness Location: of the patella, of the medial joint line and of the infrapatellar area, swelling Location: of the infrapatellar area (mild), abnormal ROM (Active extension -10, flexion 110), knee ligament exam normal Details: anterior drawer test normal, posterior drawer test normal, valgus stress test normal, varus stress test normal and Karen's test normal, Ayleen's Test Details: negative laterally and positive medially and crepitus Location: at the patella (mild) and foot Details: toes with normal ROM, vascular exam Details: dorsalis pedis pulse present and normal capillary refill and motor-sensory exam light-touch normal; no tenderness Psych: Affect: normal affect Results Labs 06/09/25 06:07 06/09/25 06:07 Labs: Abnormal lab results 06/08/25 06/08/25 Range/Units 05:58 14:28 RBC 3.44 L (4.2-5.4) M/mm3 Hgb 10.9 L (12.0-15.0) g/dL Hct 32.8 L (37.0-47.0) % Immature Gran % (Auto) 0.6 H (0-0.5) % Neut % (Auto) 80.3 H (45.5-73.1) % Lymph % (Auto) 7.1 L (18.3-44.2) % Berks % (Auto) 11.5 H (2.6-8.5) % Lymph # (Auto) 0.59 L (0.9-3.2) K/mm3 [place] # (Auto) 1.0 H (0.1-0.6) K/mm3 Abs Immat Gran (auto) 0.05 H (0.00-0.031) K/mm3 Sodium 135 L 136 L (137-145) mmol/L Potassium 2.9 L (3.4-5.0) mmol/L Chloride 109 H 109 H (98-107) mmol/L Carbon Dioxide 20 L 21 L (22-30) mmol/L Creatinine 0.67 L (0.7-1.0) mg/dL Glucose 116 H 117 H (65-110) mg/dL Calcium 6.9 L 7.3 L (8.4-10.2) mg/dL AST 58 H (14-36) U/L Total Creatine Kinase 1133 H (30-135) U/L Total Protein 5.7 L (6.3-8.2) g/dL Albumin 3.0 L (3.5-5.1) g/dL H & H 06/06/25 06/07/25 06/08/25 Range/Units 17:46 01:26 05:58 Hgb 15.6 H 12.2 D 10.9 L (12.0-15.0) g/dL Hct 45.3 36.7 L 32.8 L (37.0-47.0) % All other labs normal.
[2025-06-08] MEDS: POTASSIUM CHLORIDE 10 MEQ ER TABLET 30 MEQ PO (17:39)
[2025-06-08] MEDS: SODIUM CHLORIDE 0.9% IV 1,000 ML 100 ML IV CONT (17:42)
[2025-06-08] MEDS: SIMVASTATIN 10 MG TABLET PO (20:51)
[2025-06-09] VITALS (8 sets, daily range): BP systolic 146–168; BP diastolic 78–90; PULSE 71–97; RESP 16–20; TEMP 37.1–37.9; O2SAT 95–100
[2025-06-09 06:33] LABS: Hematocrit 32.8 % (37.0-47.0); Hemoglobin 10.9 g/dL (12.0-15.0); Mean Corpuscular HGB Conc 33.2 g/dl (32-36); Mean Corpuscular Hemoglobin 32.2 pg (26-34); Mean Corpuscular Volume 96.8 fl (80-100); Platelet Count Result 158 k/mm3 (150-375); Red Blood Count 3.39 M/mm3 (4.2-5.4); White Blood Count 8.3 K/mm3 (4.5-10.0)
[2025-06-09 07:00] LABS: Anion Gap 3 mmol/L (4-12); Blood Urea Nitrogen 11 mg/dL (7-17); Calcium 7.0 mg/dL (8.4-10.2); Carbon Dioxide 25 mmol/L (22-30); Chloride 106 mmol/L (98-107); Creatine Kinase 609 U/L (30-135); Estimated CRCL calculation 54 ml/min; Estimated Glomerular Filt Rate > 60; Glucose 102 mg/dL (65-110); Magnesium 1.8 mg/dL (1.6-2.3); Potassium 3.7 mmol/L (3.4-5.0); Sodium 134 mmol/L (137-145)
[2025-06-09] MEDS: POTASSIUM CHLORIDE 10 MEQ ER TABLET 30 MEQ PO ×2 (08:43→17:53)
[2025-06-09] MEDS: TIMOLOL MALEATE 0.5% OP SOLN 5 ML BOTTLE 1 DROP EACH EYE ×2 (08:44→20:49)
[2025-06-09] MEDS: BRIMONIDINE TARTRATE 0.2% OP SOLN 5 ML BTL 1 DROP EACH EYE ×2 (08:44→20:49)
[2025-06-09] MEDS: SODIUM CHLORIDE 0.9% IV 1,000 ML 100 ML IV CONT (08:45)
[2025-06-09] MEDS: INDAPAMIDE 1.25 MG TABLET PO (08:45)
--- NOTE | 2025-06-09 13:16 | PM.OP ---
Procedure Note - Brief Procedure Note - Brief Date of procedure: 06/09/25 knee pain Procedure performed: Left Knee Aspiration Surgeon: Renetta Lux APRN Findings: Consent obtain. Left knee prepped with alcohol and iodine. 3mL 1% Lidocaine for local anesthetic. 80mL of sanguinous fluid aspirated. Sent for STAT gram stain, cell count, crystals and protein. NO injection performed at this time. Patient tolerated procedure well. The risks of injection were reviewed including but not limited to skin color changes, atrophy of the soft tissue, tendon or soft tissue rupture, joint degeneration, hyper inflammatory response, allergic reaction, continued pain or dysfunction. Specific risks of the procedure including deep infection or soft tissue rupture or recurrence of symptoms reviewed. No guarantees were offered. The patient understands the need for possible further treatment. Urine output (mL): 700 Drains: No Packing: No Pathology: Yes Complications: No immediate complications Condition: Stable Disposition: No change Joint Aspiration & Injection Pre-Procedure Pre-procedure care: Consent was obtained, Procedures/risks were explained, Questions were answered, Correct patient identified and Correct side and site confirmed Post Procedure Patient tolerated the procedure well?: Tolerated procedure well Position Position: Sitting Location: left Site Prepped Technique: sterile technique Anesthetic: lidocaine 1% plain Fluid: Sanguinous Fluid Withdrawn (mL): 80 Sterile Dressing Sterile Dressing: Pressure KNEE Knee Procedure: lateral joint line Manual palpation
[2025-06-09 13:25] LABS: Color Synovial Fluid Red (Colorless); Lymphocytes Synovial Fluid 3 %; Macrophages Synovial Fluid 22 %; Monocytes Synovial Fluid 3 %; Neutrophils Synovial Fluid 72 % (0-25); Nucleated Cell Synovial Fluid 5732 /uL (0-200); RBC Synovial Fluid 135000 /uL (0-0)
--- NOTE | 2025-06-09 17:23 | PM.IMPN ---
Progress Note: A&P Assessment and Plan (1) ASHWINI (acute kidney injury): Code(s): N17.9 - Acute kidney failure, unspecified Status: Acute Assessment and Plan: on admission BUN 36, creatinine 1.67 s/p fluid resuscitation improving, BUN 29, creatinine 1.04 today continue IV fluids AM labs (2) Rhabdomyolysis: Qualifiers: Rhabdomyolysis type: non-traumatic Qualified Code(s): M62.82 - Rhabdomyolysis Code(s): M62.82 - Rhabdomyolysis Status: Acute Assessment and Plan: due to prolonged time sitting on toilet on admission CK was 3501 IV fluids, continue today CK 2373 trend CK level daily (3) Encephalopathy: Qualifiers: Encephalopathy type: unspecified encephalopathy Qualified Code(s): G93.40 - Encephalopathy, unspecified Code(s): G93.40 - Encephalopathy, unspecified Status: Acute Assessment and Plan: on admission patient was oriented x 1 and nodding off during exam today patient is alert and oriented x 3-4, but does not remember how she ended up on the toilet or anything that happened until some time after she was admitted to the medical unit. 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 Urine drug screen negative, acetaminophen and salicylate levels negative Rapid covid/flu/RSV negative, no signs of acute infection Telemetry Brain MRI ordered EEG per neurology PT/OT/ST eval and treat question if patient will need SNF on discharge as she lives alone Plan patient stats feel about the same, her MRI of brain did not show any acute injury, and does complaints of both knee pain and swelling, x-ray of the knee, showed severe OA, seen an orthopedic and recommended steroid injection to reduce pain and inflammation, patient was also found to have rhabdomyolysis and upon arrival her CK were 2373 and today trending down to 609, will continue to hydrate the patient and monitor one more day and possible discharge patient tomorrow. Subjective Date/time seen: 06/09/25 17:23 Interval history: Patient seen for a follow up visit. Patient lying in bed, in no acute distress. Patient is alert and oriented x 3. Patient is aware of why she is in the hospital, she just reports she cannot remember when or how she got into the bathroom and anything up until after sometime she was admitted onto the medical unit. Patient denies acute pain. Patient continues on IV fluids for rhabdo. Patient was seen by neurology and will have an MRI of the brain and an EEG completed. Patient will need PT/OT evaluation. patient stats feel about the same, her MRI of brain did not show any acute injury, and does complaints of both knee pain and swelling, x-ray of the knee, showed severe OA, seen an orthopedic and recommended steroid injection to reduce pain and inflammation, patient was also found to have rhabdomyolysis and upon arrival her CK were 2373 and today trending down to 609, will continue to hydrate the patient and monitor one more day and possible discharge patient tomorrow. Review of Systems Review of Systems: All systems reviewed & are unremarkable except as noted in HPI and below (Subjective) Exam Narrative: Patient is comfortable, NAD HEENT: eyes are clear and none icteric LUNGS:CTA HEART: RR S1S2 ABD: BS+, Soft and nontender Lower extremities: no edema MS: B/L knees are swollen and tender, no erythema, warmth or sign of injury SKIN: nonjaundiced Neuro: grossly intact. Objective Data Vital Signs Vital Signs: Vital Signs - 24 hr 06/08/25 20:00 06/08/25 20:00 06/08/25 20:00 Temperature 37.5 C Pulse Rate 79 95 Respiratory Rate 18 Blood Pressure 144/70 H Pulse Oximetry 100 Oxygen Delivery Room Air 06/09/25 00:00 06/09/25 00:00 06/09/25 04:00 Temperature 37.1 C 37.1 C Pulse Rate 71 74 81 Respiratory Rate 16 16 Blood Pressure 146/78 H 150/78 H Pulse Oximetry 100 95 Oxygen Delivery 06/09/25 07:40 06/09/25 08:00 06/09/25 08:00 Temperature 37.7 C H Pulse Rate 82 87 Respiratory Rate 17 Blood Pressure 157/81 H Pulse Oximetry 96 Oxygen Delivery Room Air 06/09/25 11:35 06/09/25 12:00 06/09/25 16:00 Temperature 37.1 C 37.2 C Pulse Rate 90 83 88 Respiratory Rate 17 20 Blood Pressure 155/90 H 168/88 H Pulse Oximetry 100 96 Oxygen Delivery 06/09/25 16:00 Temperature Pulse Rate 89 Respiratory Rate Blood Pressure Pulse Oximetry Oxygen Delivery Intake/Output Intake/Output: Intake & Output 06/06/25 06/07/25 06/08/25 06/09/25 23:59 23:59 23:59 23:59 Intake Total 3000 2597 2232 1840 Output Total 700 1000 1400 Balance 3000 1897 1232 440 Meds/Results Medications: Active Medications Generic Name Dose Route Start Last Admin Trade Name Miquelq PRN Reason Stop Dose Admin Acetaminophen 650 mg 06/08/25 04:53 06/08/25 20:51 Acetaminophen 325 Mg Tablet PO 650 mg Q4H PRN Administration Fever Brimonidine Tartrate 1 drop 06/07/25 09:00 06/09/25 08:44 Brimonidine Tartrate 0.2% Op Soln 5 Ml Btl EACH EYE 1 drop Q12HR SHAZIA Administration Sodium Chloride 1,000 mls @ 100 mls/hr 06/07/25 07:45 06/09/25 08:45 Normal Saline Iv IV CONT 100 mls/hr .Q10H SHAZIA Administration Indapamide 1.25 mg 06/07/25 09:00 06/09/25 08:45 Indapamide 1.25 Mg Tablet PO 1.25 mg DAILY SHAZIA Administration Potassium Chloride 30 meq 06/07/25 17:00 06/09/25 08:43 Potassium Chloride 10 Meq Er Tablet PO 30 meq BID SHAZIA Administration Simvastatin 10 mg 06/07/25 21:00 06/08/25 20:51 Simvastatin 10 Mg Tablet PO 10 mg HS SHAZIA Administration Timolol Maleate 1 drop 06/07/25 09:00 06/09/25 08:44 Timolol Maleate 0.5% Op Soln 5 Ml Bottle EACH EYE 1 drop Q12HR SHAZIA Administration Radiology Results: ITS Impressions Head CT 06/06/25 19:55 IMPRESSION: 1. No acute intracranial abnormality. 2: Moderate sinus disease, possibly chronic. Chest X-Ray 06/06/25 20:07 Impression: 1: No acute cardiopulmonary disease. 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 Otherwise no hemodynamically significant stenosis is noted of the cervical and intracranial arterial vasculature. Brain MRI 06/08/25 15:08 IMPRESSION: 1. No acute intracranial process or abnormally enhancing brain lesions.. 2. Stable appearance of prominent chronic periventricular predominant white matter T2 hyperintensity consistent with chronic small vessel ischemic disease and multiple more focal small old lacunar infarcts in the bilateral cerebral periventricular white matter. 3. Unchanged symmetric enlargement of the third and left and right lateral ventricles which could be secondary to age-related central predominant diffuse cerebral volume loss or secondary to normal pressure hydrocephalus (NPH: clinical triad ataxia/gait disturbance, dementia, urinary incontinence). Knee X-Ray 06/08/25 15:42 Impression: No acute fracture or malalignment. Labs Labs: Laboratory Results - last 24 hr 06/09/25 06/09/25 06:07 10:06 WBC 8.3 RBC 3.39 L Hgb 10.9 L Hct 32.8 L MCV 96.8 MCH 32.2 MCHC 33.2 RDW 13.2 Plt Count 158 MPV 10.2 Sodium 134 L Potassium 3.7 Chloride 106 Carbon Dioxide 25 Anion Gap 3 L BUN 11 D Creatinine 0.67 L Estim Creat Clear Calc 54 Estimated GFR > 60 Glucose 102 Calcium 7.0 L Magnesium 1.8 Total Creatine Kinase 609 H Synovial Source Rt hip syn fluid Synovial Color Red Synovial Appearance Bloody A Synovial RBC 348437 H Synovial Nuc Cells 5732 H Synovial Neutrophils 72 H Synovial Lymphocytes 3 Synovial Monocytes 3 Synovial Macrophages 22 Synovial Crystals Few cppd Quality VTE Prophylaxis VTE prophylaxis: mechanical ordered
[2025-06-09] MEDS: SIMVASTATIN 10 MG TABLET PO (20:49)
[2025-06-10] VITALS: BP 137/73; PULSE 80; PULSE 83; RESP 16; TEMP 38; O2SAT 95
[2025-06-10 04:00] VITALS: BP 144/78; PULSE 77; PULSE 84; RESP 17; TEMP 37; O2SAT 95
[2025-06-10 06:40] LABS: Hematocrit 33.1 % (37.0-47.0); Hemoglobin 10.9 g/dL (12.0-15.0); Mean Corpuscular HGB Conc 32.9 g/dl (32-36); Mean Corpuscular Hemoglobin 31.3 pg (26-34); Mean Corpuscular Volume 95.1 fl (80-100); Platelet Count Result 184 k/mm3 (150-375); Red Blood Count 3.48 M/mm3 (4.2-5.4); White Blood Count 7.9 K/mm3 (4.5-10.0)
[2025-06-10 07:03] LABS: Anion Gap 5 mmol/L (4-12); Blood Urea Nitrogen 10 mg/dL (7-17); Calcium 7.1 mg/dL (8.4-10.2); Carbon Dioxide 24 mmol/L (22-30); Chloride 103 mmol/L (98-107); Creatine Kinase 372 U/L (30-135); Estimated CRCL calculation 57 ml/min; Estimated Glomerular Filt Rate > 60; Glucose 103 mg/dL (65-110); Magnesium 1.7 mg/dL (1.6-2.3); Potassium 3.3 mmol/L (3.4-5.0); Sodium 132 mmol/L (137-145)
[2025-06-10 07:35] LABS: Source Synovial Fluid Lt Knee Syn Fluid
[2025-06-10 08:00] VITALS: PULSE 90
--- NOTE | 2025-06-10 08:01 | PCPTNOTE ---
Attempted to see patient for PT, however patient was eating breakfast.
[2025-06-10] MEDS: BRIMONIDINE TARTRATE 0.2% OP SOLN 5 ML BTL 1 DROP EACH EYE (08:12)
[2025-06-10] MEDS: TIMOLOL MALEATE 0.5% OP SOLN 5 ML BOTTLE 1 DROP EACH EYE (08:12)
[2025-06-10] MEDS: INDAPAMIDE 1.25 MG TABLET PO (08:12)
[2025-06-10] MEDS: POTASSIUM CHLORIDE 10 MEQ ER TABLET 30 MEQ PO (08:12)
[2025-06-10 08:45] VITALS: PULSE 84; RESP 17; O2SAT 95
--- NOTE | 2025-06-10 09:35 | P.PNOP_ITS ---
<Statement entered by Vik Smith MD - 06/10/25 10:35> Luis: lab results reviewed. CPPD crystals. Gram stain negative. Plan to proceed with cortisone Progress Note: A&P Assessment and Plan (1) Arthritis of knee, degenerative: Qualifiers: Osteoarthritis type: primary Laterality: bilateral Qualified Code(s): M17.0 - Bilateral primary osteoarthritis of knee Code(s): M17.9 - Osteoarthritis of knee, unspecified Status: Acute Assessment and Plan: Reevaluation for chief complaint bilateral knee pain and swelling. History, physical exam and radiographs reviewed with the patient. Found after prolonged sitting position at home. Radiographs of the left knee show severe degenerative changes including severe degenerative patellofemoral arthritis with periarticular calcifications. Most likely stress response to prolonged knee flexed position which may have exacerbated pre-existing degenerative change. Patient states the left knee has become more painful and swollen over the past 1-2 months. History of left knee medial meniscectomy many years ago in open fashion. Patient underwent aspiration of the left knee yesterday. Gram Stain not ran by lab. Requested again today and it is now pending. Synovial fluid analysis reveals CPPD and inflammation, not consistent with infection. Pending gram stain results, would recommend cortisone injection for pain control. Patient needs PT/OT with [facility] in order to progress back to baseline. Will likely need [facility] vs. SNF for rehab upon discharge. Plan Reviewed history, exam, radiographs and current labs with attending MD and covering surgeon, Dr. Smith, who agrees with current plan as indicated above. No further recommendations from Dr. Smith at this time. Time Spent With Patient Time with patient: less than 15 minutes Subjective Subjective Date/Time Seen: 06/10/25 09:35 Interval history: 1 day s/p left knee aspiration. Patient reports mild improvement in pain. She has not yet attempted to ambulate. Still with mild confusion. Review of Systems Review of Systems: All systems reviewed & are unremarkable except as noted in HPI and below Exam Const: General: healthy appearing; No in distress Orientation/consciousness: oriented to person HENMT: Head: normal to inspection, normocephalic and atraumatic Neck: Neck: supple and nontender Resp: Effort & Inspection: normal respiratory effort and no audible wheezes Extrem: Right upper extremity: normal to inspection Left upper extremity: normal to inspection Right lower extremity: hip/thigh Details: normal ROM; no tenderness, knee Details: tenderness (anterior and medial joint line ) Location: of the medial joint line (moderate ) and of the pre-patellar area (moderate ), swelling (peripatellar and medial joint ), abnormal ROM (active range of motion -10 degrees extension, 110 degrees flexion) Details: pain with active ROM during Details: in extension and in flexion, knee ligament exam normal Details: anterior drawer test normal, posterior drawer test normal, valgus stress test normal and Karen?s test normal, knee ligament exam abnormal Details: varus stress test normal (painful medial ) and Ayleen's Test Details: positive medially and foot Details: normal capillary refill, toes with normal ROM, vascular exam Details: dorsalis pedis pulse present and motor-sensory exam Details: light-touch normal; no tenderness; no edema Left lower extremity: normal to inspection, normal capillary refill, knee Details: tenderness Location: of the patella, of the medial joint line and of the infrapatellar area, swelling Location: of the infrapatellar area (mild), abnormal ROM (Active extension -10, flexion 110), knee ligament exam normal Details: anterior drawer test normal, posterior drawer test normal, valgus stress test normal, varus stress test normal and Karen's test normal, Ayleen's Test Details: negative laterally and positive medially and crepitus Location: at the patella (mild) and foot Details: toes with normal ROM, vascular exam Details: dorsalis pedis pulse present and normal capillary refill and motor-sensory exam light-touch normal; no tenderness Psych: Affect: normal affect Objective Data Vital Signs Vital Signs: Vital Signs - 24 hr 06/09/25 11:35 06/09/25 12:00 06/09/25 16:00 Temperature 37.1 C 37.2 C Pulse Rate 90 83 88 Respiratory Rate 17 20 Blood Pressure 155/90 H 168/88 H Pulse Oximetry 100 96 Oxygen Delivery 06/09/25 16:00 06/09/25 20:00 06/09/25 20:00 Temperature 37.9 C H Pulse Rate 89 93 Respiratory Rate 18 Blood Pressure 153/81 H Pulse Oximetry 96 Oxygen Delivery Room Air 06/09/25 20:00 06/10/25 00:00 06/10/25 00:00 Temperature 38.0 C H Pulse Rate 97 83 80 Respiratory Rate 16 Blood Pressure 137/73 Pulse Oximetry 95 Oxygen Delivery 06/10/25 04:00 06/10/25 04:00 Temperature 37.0 C Pulse Rate 77 84 Respiratory Rate 17 Blood Pressure 144/78 H Pulse Oximetry 95 Oxygen Delivery Intake/Output Intake/Output: Intake & Output 06/07/25 06/08/25 06/09/25 06/10/25 23:59 23:59 23:59 23:59 Intake Total 2597 2232 2960 240 Output Total 700 1000 2250 650 Balance 1897 1232 710 -410 Meds/Results Medications: Active Medications Generic Name Dose Route Start Last Admin Trade Name Freq PRN Reason Stop Dose Admin Acetaminophen 650 mg 06/08/25 04:53 06/08/25 20:51 Acetaminophen 325 Mg Tablet PO 650 mg Q4H PRN Administration Fever Brimonidine Tartrate 1 drop 06/07/25 09:00 06/10/25 08:12 Brimonidine Tartrate 0.2% Op Soln 5 Ml Btl EACH EYE 1 drop Q12HR SHAZIA Administration Indapamide 1.25 mg 06/07/25 09:00 06/10/25 08:12 Indapamide 1.25 Mg Tablet PO 1.25 mg DAILY SHAZIA Administration Potassium Chloride 30 meq 06/07/25 17:00 06/10/25 08:12 Potassium Chloride 10 Meq Er Tablet PO 30 meq BID SHAZIA Administration Simvastatin 10 mg 06/07/25 21:00 06/09/25 20:49 Simvastatin 10 Mg Tablet PO 10 mg HS SHAZIA Administration Timolol Maleate 1 drop 06/07/25 09:00 06/10/25 08:12 Timolol Maleate 0.5% Op Soln 5 Ml Bottle EACH EYE 1 drop Q12HR SHAZIA Administration Radiology Results: ITS Impressions Head CT 06/06/25 19:55 IMPRESSION: 1. No acute intracranial abnormality. 2: Moderate sinus disease, possibly chronic. Chest X-Ray 06/06/25 20:07 Impression: 1: No acute cardiopulmonary disease. 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 Otherwise no hemodynamically significant stenosis is noted of the cervical and intracranial arterial vasculature. Brain MRI 06/08/25 15:08 IMPRESSION: 1. No acute intracranial process or abnormally enhancing brain lesions.. 2. Stable appearance of prominent chronic periventricular predominant white matter T2 hyperintensity consistent with chronic small vessel ischemic disease and multiple more focal small old lacunar infarcts in the bilateral cerebral periventricular white matter. 3. Unchanged symmetric enlargement of the third and left and right lateral ventricles which could be secondary to age-related central predominant diffuse cerebral volume loss or secondary to normal pressure hydrocephalus (NPH: clinical triad ataxia/gait disturbance, dementia, urinary incontinence). Knee X-Ray 06/08/25 15:42 Impression: No acute fracture or malalignment. Labs Labs: Laboratory Results - last 24 hr 06/09/25 06/10/25 10:06 05:57 WBC 7.9 RBC 3.48 L Hgb 10.9 L Hct 33.1 L MCV 95.1 MCH 31.3 MCHC 32.9 RDW 13.1 Plt Count 184 MPV 10.5 H Sodium 132 L Potassium 3.3 L Chloride 103 Carbon Dioxide 24 Anion Gap 5 BUN 10 Creatinine 0.63 L Estim Creat Clear Calc 57 Estimated GFR > 60 Glucose 103 Calcium 7.1 L Magnesium 1.7 Total Creatine Kinase 372 H Synovial Source Lt knee syn fluid Synovial Color Red Synovial Appearance Bloody A Synovial RBC 197411 H Synovial Nuc Cells 5732 H Synovial Neutrophils 72 H Synovial Lymphocytes 3 Synovial Monocytes 3 Synovial Macrophages 22 Synovial Crystals Few cppd
--- NOTE | 2025-06-10 09:43 | P.DS_ITS ---
DS: Admitting Diagnosis Discharge Date 06/10/25 Admitting Diagnosis Altered mental status DS: Discharge Diagnosis Discharge Diagnosis (1) ASHWINI (acute kidney injury): Code(s): N17.9 - Acute kidney failure, unspecified Status: Acute Assessment and Plan: on admission BUN 36, creatinine 1.67 s/p fluid resuscitation improving, BUN 29, creatinine 1.04 today continue IV fluids AM labs (2) Rhabdomyolysis: Qualifiers: Rhabdomyolysis type: non-traumatic Qualified Code(s): M62.82 - Rhabdomyolysis Code(s): M62.82 - Rhabdomyolysis Status: Acute Assessment and Plan: due to prolonged time sitting on toilet on admission CK was 3501 IV fluids, continue today CK 2373 trend CK level daily (3) Encephalopathy: Qualifiers: Encephalopathy type: unspecified encephalopathy Qualified Code(s): G93.40 - Encephalopathy, unspecified Code(s): G93.40 - Encephalopathy, unspecified Status: Acute Assessment and Plan: on admission patient was oriented x 1 and nodding off during exam today patient is alert and oriented x 3-4, but does not remember how she ended up on the toilet or anything that happened until some time after she was admitted to the medical unit. 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 Urine drug screen negative, acetaminophen and salicylate levels negative Rapid covid/flu/RSV negative, no signs of acute infection Telemetry Brain MRI ordered EEG per neurology PT/OT/ST eval and treat question if patient will need SNF on discharge as she lives alone Plan patient stats feel about the same, her MRI of brain did not show any acute injury, and does complaints of both knee pain and swelling, x-ray of the knee, showed severe OA, seen an orthopedic and recommended steroid injection to reduce pain and inflammation, patient was also found to have rhabdomyolysis and upon arrival her CK were 2373 and today trending down to 609, will continue to hydrate the patient and monitor one more day and possible discharge patient tomorrow. DS: Summary Hospital Course Hospital Course: patient stats feel about the same, her MRI of brain did not show any acute injury, and does complaints of both knee pain and swelling, x-ray of the knee, showed severe OA, seen an orthopedic and recommended steroid injection to reduce pain and inflammation, patient was also found to have rhabdomyolysis and upon arrival her CK were 2373 and today trending down to 609, will continue to hydrate the patient and monitor one more day and possible discharge patient tomorrow. patient is at her baseline and her CK levels are now 372, patient is clinically stable, will discharge the patient SNF for rehab. patient will benefit. Time Spent with Patient Time attestation: Total time spent providing and/or coordinating discharge services: Exam Narrative: Patient is comfortable, NAD HEENT: eyes are clear and none icteric LUNGS:CTA HEART: RR S1S2 ABD: BS+, Soft and nontender Lower extremities: no edema MS: B/L knees are swollen and tender, no erythema, warmth or sign of injury SKIN: nonjaundiced Neuro: grossly intact. DS: Data Data Completed and Pending Labs on day of discharge: Labs from last 24 hours 06/10/25 06/09/25 05:57 10:06 WBC 7.9 RBC 3.48 L Hgb 10.9 L Hct 33.1 L MCV 95.1 MCH 31.3 MCHC 32.9 RDW 13.1 Plt Count 184 MPV 10.5 H Sodium 132 L Potassium 3.3 L Chloride 103 Carbon Dioxide 24 Anion Gap 5 BUN 10 Creatinine 0.63 L Estim Creat Clear Calc 57 Estimated GFR > 60 Glucose 103 Calcium 7.1 L Magnesium 1.7 Total Creatine Kinase 372 H Fluid Glucose Pending Fluid Total Protein Pending Synovial Source Lt knee syn fluid Synovial Color Red Synovial Appearance Bloody A Synovial RBC 250747 H Synovial Nuc Cells 5732 H Synovial Neutrophils 72 H Synovial Lymphocytes 3 Synovial Monocytes 3 Synovial Macrophages 22 Synovial Crystals Few cppd Preliminary micro results at discharge 06/06/25 18:08 Blood Culture - Preliminary Blood 06/06/25 18:27 Blood Culture - Preliminary Blood Staphylococcus epidermidis Discharge Plan Discharge Attending physician on discharge: Keke Colon Consulting providers: Vik Smith; Keanu Julien; Michael Knight; Maria Eugenia Balbuena; Renetta Lux; Teodoro Campbell; Joshua Reardon; Colt Penn; Jeremie Welch Discharging Clinician: Francia Saba Patient Disposition: SNF Activity: as tolerated Diet: heart healthy Discharge Instructions: patient to follow up with her primary care provider and orthopedic as soon as possible, patient in instructed if any symptoms worsen to go to nearest ER, Patient Instructions: Antibiotic Form Patient Language: Croatian Stand Alone Forms: General Discharge Information Follow-up/Referrals: Vik Smith MD [Physician, Orthopedics] Wili,Colt Adams MD [Primary Care Provider] Discharge Medications: Continued ibuprofen 600 mg tablet 600 mg PO TID PRN (Reason: pain) Qty: 30 0RF acetaminophen 500 mg capsule 1,000 mg PO Q6H PRN (Reason: pain) Qty: 30 0RF brimonidine 0.2 % drops 1 drp EACH EYE .Q12 celecoxib 200 mg capsule 200 mg PO DAILY indapamide 1.25 mg tablet 1.25 mg PO DAILY potassium chloride 10 mEq tablet extended release 30 meq PO BID simvastatin 10 mg tablet 10 mg PO HS timolol maleate 0.5 % drops 1 drp EACH EYE Q12H amlodipine 10 mg tablet 10 mg PO DAILY Date of admission: 06/06/25 22:13 Primary Care Provider: Wili,Colt Adams Admitting Provider: Keke Colon Attending physician on admission: Francia Saba Condition: Stable
[2025-06-10 10:25] VITALS: BP 155/78; PULSE 78; RESP 18; TEMP 36.7; O2SAT 100
[2025-06-10 11:03] LABS: SARS-CoV-2 RNA PCR Negative (Negative)
--- NOTE | 2025-06-10 11:28 | PM.OP ---
Procedure Note - Brief Procedure Note - Brief Date of procedure: 06/10/25 knee pain Procedure performed: Left Knee Aspiration Surgeon: Renetta Lux APRN Findings: Consent obtain. Left knee prepped with alcohol and iodine. 3mL 1% Lidocaine for local anesthetic. 45 mL of serosanguineous fluid aspirated. Cortisone injection performed, tolerated well. Post injection instructions discussed. The risks of injection were reviewed including but not limited to skin color changes, atrophy of the soft tissue, tendon or soft tissue rupture, joint degeneration, hyper inflammatory response, allergic reaction, continued pain or dysfunction. Specific risks of the procedure including deep infection or soft tissue rupture or recurrence of symptoms reviewed. No guarantees were offered. The patient understands the need for possible further treatment. Urine output (mL): 700 Drains: No Packing: No Pathology: Yes Complications: No immediate complications Condition: Stable Disposition: No change Joint Aspiration & Injection Pre-Procedure Pre-procedure care: Consent was obtained, Procedures/risks were explained, Questions were answered, Correct patient identified and Correct side and site confirmed Post Procedure Patient tolerated the procedure well?: Tolerated procedure well Position Position: Sitting Location: left Site Prepped Technique: sterile technique Anesthetic: lidocaine 1% plain Fluid: Sanguinous Fluid Withdrawn (mL): 45 Sterile Dressing Sterile Dressing: Pressure KNEE Knee Procedure: lateral joint line Manual palpation
--- NOTE | 2025-06-10 11:33 | PCPTNOTE ---
Attempted to see patient for PT, however patient refused due to anticipated discharge.
[2025-06-10 12:00] VITALS: PULSE 86
--- NOTE | 2025-06-10 12:02 | P.CDI_ITS ---
CDI Query Clarification Request Encephalopathy has been documented. Please clarify type of encephalopathy: * Metabolic * Toxic * Hepatic * Hypertensive * Other * Unable to Determine Hospitalist documented: Assessment and Plan (1) ASHWINI (acute kidney injury): Code(s): N17.9 - Acute kidney failure, unspecified Status: Acute Assessment and Plan: on admission BUN 36, creatinine 1.67 s/p fluid resuscitation improving, BUN 29, creatinine 1.04 today continue IV fluids AM labs (2) Rhabdomyolysis: Qualifiers: Rhabdomyolysis type: non-traumatic Qualified Code(s): M62.82 - Rhabdomyolysis Code(s): M62.82 - Rhabdomyolysis Status: Acute Assessment and Plan: due to prolonged time sitting on toilet on admission CK was 3501 IV fluids, continue today CK 2373 trend CK level daily (3) Encephalopathy: Qualifiers: Encephalopathy type: unspecified encephalopathy Qualified Code(s): G93.40 - Encephalopathy, unspecified Code(s): G93.40 - Encephalopathy, unspecified Status: Acute Assessment and Plan: on admission patient was oriented x 1 and nodding off during exam today patient is alert and oriented x 3-4, but does not remember how she ended up on the toilet or anything that happened until some time after she was admitted to the medical unit. 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 Urine drug screen negative, acetaminophen and salicylate levels negative Rapid covid/flu/RSV negative, no signs of acute infection Telemetry Brain MRI ordered EEG per neurology PT/OT/ST eval and treat question if patient will need SNF on discharge as she lives alone Neurology documented: Assessment and plan (1) Encephalopathy: Qualifiers: Encephalopathy type: unspecified encephalopathy Qualified Code(s): G93.40 - Encephalopathy, unspecified Code(s): G93.40 - Encephalopathy, unspecified Status: Acute (2) 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 Change in the daily habits rule out the possibility of subtle ongoing artemio ntia. 2. Rule out the possibility of intracranial pathology with MRI. 3. Rule out the possibility of unwitnessed seizure though it is unlikely to be abnormal but routine EEG will be obtained to rule out the possibility of ongoing encephalopathy. 4. Obtain the MRI of the brain, she had an MRI of the brain in November of 2024 which had documented moderate to severe chronic microvascular ischemic changes with moderate to severe generalized atrophy. Further recommendation will be made accordingly.. Brain MRI: IMPRESSION: 1. No acute intracranial process or abnormally enhancing brain lesions.. 2. Stable appearance of prominent chronic periventricular predominant white matter T2 hyperintensity consistent with chronic small vessel ischemic disease and multiple more focal small old lacunar infarcts in the bilateral cerebral periventricular white matter. 3. Unchanged symmetric enlargement of the third and left and right lateral ventricles which could be secondary to age-related central predominant diffuse cerebral volume loss or secondary to normal pressure hydrocephalus (NPH: clinical triad ataxia/gait disturbance, dementia, urinary incontinence). <Melissa Welch RN - Last Filed: 06/10/25 12:08> Clarified Diagnosis Clarified Diagnosis: most likely unspecified encephalopathy, patient with underlining mild dementia and acute event with fall and laying on the floor, resulted change AMS <Francia Saba MD - Last Filed: 06/22/25 08:43>
--- NOTE | 2025-06-10 14:40 | PC.NURSE ---
Report given to TERRANCE Pinto at [facility].
[2025-06-10 15:09] LABS: Glucose, Body Fluid 65 mg/dL (.)
== END 2025-06-10 15:00 | DRG 683 ==
LOC: ANHED 22:12 → ANH3MEDSUR 23:04
PROVIDERS: Nurse Practitioner Adult Health; Nurse Practitioner Family; Admitting Provider General Practice; Emergency Provider Student in an Organized Health Care Education/Training Program; PCP Internal Medicine; Visit Provider Family Medicine
DX: N17.9 Acute kidney failure, unspecified (principal); G93.40 Encephalopathy, unspecified; M62.82 Rhabdomyolysis; I10 Essential (primary) hypertension; Z20.822 Contact with and (suspected) exposure to COVID-19; Z11.52 Encounter for screening for COVID-19
CPT/HCPCS: 20610; 36415; 36600; 70450; 70496; 70498; 70553; 71045; 73562; 80048; 80053; 80143; 80179; 80307; 81001; 82140; 82306; 82375; 82550; 82805; 82945; 83050; 83605; 83735; 84100; 84145; 84157; 84443; 85018; 85025; 85027; 87040; 87186; 87635; 87637; 89051; 89060; 93005; 96360; 96361; 97110; 97162; 97166; 97530; 97535; 99285; A9270; A9577; J3480; J7030; J7040; Q9967